=== PATIENT | female | born 1960 | race American Indian/Alaskan Native ===

== ENCOUNTER 2017-11-29 06:39 | Day surgery (SDC) | payer BC ==
[2017-10-31 11:45] VITALS: BMI 32.8
--- NOTE | 2017-11-29 04:34 | HP ---
DATE: REASON FOR ADMISSION: Left heart cath, possible angioplasty. BRIEF CLINICAL HISTORY: This is a 57-year-old female with past medical history significant for recurrent chest pain, retrosternal; status post stress test that is abnormal. The patient is scheduled for elective cardiac cath and possible angioplasty. PAST MEDICAL HISTORY: Past history is significant for recurrent chest pain, multiple visits to Dr. Hardin's office with the chest pain. Patient underwent a stress test dated 10/31/2017 and that was abnormal, so the patient is scheduled for elective cardiac cath, possible angioplasty. RECENT WORKUP: As follows: Patient had an echocardiography on 10/31/2017 that shows normal chamber size, ejection fraction 60% to 65%, mild mitral regurgitation, [id number] tricuspid regurgitation, RV systolic pressure of 32 dated 10/31/2017. Patient also underwent a stress test dated 10/31/2017 that showed probably abnormal myocardial perfusion study, reversible distal anterior apical defect suspicious for ischemia. When comparison made from 07/13/2015, the defect appeared reversible in a current study and is new as compared to before. Patient walked on the treadmill for 9 minutes and 25 seconds on Ranjan protocol and achieved 91% predicted heart rate. No significant chest pain. No ST-T changes noted. CURRENT MEDICATIONS: Patient is taking multivitamin, potassium gluconate and vitamin D. ALLERGIES: ALLERGY TO MUSHROOM. ALLERGY TO PEANUT. REVIEW OF SYSTEMS: As per HPI. PHYSICAL EXAMINATION: VITAL SIGNS: As follows: Temperature afebrile, heart rate 50, blood pressure 130/82. HEENT: PERRLA. Extraocular muscles intact. NECK: Supple. No carotid bruit or thyromegaly. CHEST: Clear to auscultation. HEART: S1 and S2, regular. ABDOMEN: Soft. EXTREMITIES: Clubbing and cyanosis negative. LABORATORY DATA: Blood workup, pending. IMPRESSION: Abnormal stress test, anteroseptal reversible ischemia, preserved left ventricular function, [id number] tricuspid regurgitation, mild mitral regurgitation, obesity and recurrent chest pain. RECOMMENDATION: We will do the cardiac catheterization. Risks, benefits and alternatives were explained to the patient, patient agreed. We will do the blood workup; if the blood workup is within normal limit, we will proceed for the cardiac catheterization. Further recommendation after cardiac catheterization. We will follow with you. Thank you for providing us the opportunity in taking care of the patient, Selina Elizabeth. Yefri Castro MD MICHAEL
[2017-11-29 07:25] LABS: BASO # 0.01 K/mm3 (0.0-2.0); BASO % 0.1 % (0.0-3.0); EOS # 0.1 (0.0-0.7); EOS % 1.4 % (1.5-5.0); GRAN # 3.3 (1.4-6.5); GRAN % 41.5 % (50.0-68.0); LYMPH # 3.9 (1.2-3.4); LYMPH % 49.2 % (22.0-35.0); MEAN CELL VOLUME 87.8 fl (80.0-105.0); MEAN CORPUSCULAR HEMOGLOBIN 28.8 pg (25.0-35.0); MEAN CORPUSCULAR HGB CONC 32.7 g/dl (31.0-37.0); MEAN PLATELET VOLUME 9.4 fl (7.0-11.0); MONO # 0.6 (0.1-0.6); MONO % 7.8 % (1.0-6.0); RBC 4.52 10^6/uL (3.5-6.1); RED CELL DISTRIBUTION WIDTH 14.4 % (11.5-14.5)
[2017-11-29 07:31] LABS: BLOOD UREA NITROGEN 18 mg/dL (7-21); CALCIUM 9.8 mg/dL (8.4-10.5); GFR AFRICAN-AMERICAN > 60; GFR NON-AFRICAN AMERICAN > 60; HDL CHOLESTEROL 64 mg/dL (29-60)
[2017-11-29 07:36] LABS: INR 0.93 (0.93-1.08); PARTIAL THROMBOPLASTIN TIME 28.8 Seconds (25.1-36.5); PROTHROMBIN TIME 10.7 SECONDS (9.4-12.5)
[2017-11-29 07:42] LABS: LDL CHOLESTEROL 102 mg/dL (0-129)
[2017-11-29] MEDS ORDERED: Phenylephrine 10 mg/ml Inj ONE (09:47)
[2017-11-29] MEDS ORDERED: Lidocaine 2% Inj (20ml) ONE (09:49)
[2017-11-29] MEDS ORDERED: Iohexol 350mgl/ml 50 ML ONE (09:50)
[2017-11-29] MEDS ORDERED: Iodixanol 320 MG/ML 200 ML BOTTLE IV ONE (09:51)
[2017-11-29] MEDS ORDERED: Iodixanol 320 MG/ML 100 ML BOTTLE IV ONE (09:51)
[2017-11-29] MEDS ORDERED: Midazolam 2 MG/2 ML VIAL ONE (09:52)
[2017-11-29] MEDS ORDERED: Nitroglycerin 50mg in D5W 50 MG/250 ML BOTTLE IV ONE (10:17)
[2017-11-29] MEDS ORDERED: Verapamil 2 ML ONE (10:17)
[2017-11-29] MEDS ORDERED: Bacitracin 500 Units/gm Oint Foilpak UD TOP ONE (10:59)
[2017-11-29] MEDS ORDERED: Sodium Chloride 0.9% 1,000 ML IV SCH (11:00)
[2017-11-29 11:19] VITALS: RESP 18; TEMP 98.1
--- NOTE | 2017-11-29 11:29 | CPOSTOP ---
DATE: 11/29/2017 DICTATING PHYSICIAN: Yefri Castro MD. WELDING SYSTEMS AND EQUIPMENT REPAIRER: Teena, social service technician, COAL LOADER. TYPE OF ANESTHESIA USED: Moderate conscious sedation. Total dose 2 mg of Versed, 100 of fentanyl given periodically, started at 1 mg Versed and 50 of fentanyl. PROCEDURE PERFORMED: Left heart catheterization. FINDINGS: Nonobstructive coronary artery disease. FINAL DIAGNOSIS: Nonobstructive coronary artery disease, limited only to distal circumflex. POST PROCEDURE CONDITION: Post procedure, the patient's condition is stable. VASCULAR ACCESS: Left radial. CLOSURE DEVICE APPLIED: TR Band. TOTAL RADIATION DOSE: 4798.8 milligray unit. TOTAL FLUORO TIME: 1.9 minutes. The patient is stable at the time of discharge. Yefri Castro MD
[2017-11-29 12:57] VITALS: O2SAT 96
[2017-11-29 13:18] VITALS: BP 124/59; PULSE 58
[2017-11-29] MEDS ORDERED: Bacitracin 500 Units/gm Oint Foilpak UD ONE (13:54)
--- NOTE | 2017-11-29 16:17 | CARD ---
APPROVED REPORT Procedure(s) performed: Left Heart Catheterization HISTORY The patient is a 57 year-old female with a history of : most recent EF: 69%. (EF Method: RADIONUCLIDE), hypertension , dyslipidemia , recurrent chest pain and abnormal stress test dana-septal Ischemia.. INDICATION The indication(s) include : positive stress test. CASE TECHNIQUE The patient was brought electively to the Cardiac Catheterization Laboratory in a fasting state and was prepped and draped in a sterile manner. The left wrist was infiltrated with 2% Lidocaine subcutaneous anesthesia. A 6FR [employer]+ [employer] sheath was inserted into the left radial artery without difficulty. Coronary angiography was performed using coronary diagnostic catheters. The left coronary system was accessed and visualized with a Diagnostic ,6F JL 4 CATH DXT 100 CM catheter. The right coronary system was accessed and visualized with a Diagnostic ,6F JR 4 CATH DXT 100 CM catheter. The left ventricle was accessed and visualized with a 6F PIGTAIL 145 CATH DXT 110 CM catheter. Left ventricular/Aortic Valve gradient assessed on pullback. Left ventriculogram was performed in CONCEPCION projection. Closure device was deployed with a Fr TR Band (Regular) without any complications. The patient tolerated the procedure well and there were no complications associated with the procedure. Vessel Analysis The patient's coronary anatomy is co-dominant. The left main coronary artery is a medium size vessel with diffuse calcification noted throughout this vessel and without significant stenosis. The left main bifurcates to the left anterior descending and circumflex. The left anterior descending artery is a medium size vessel with intimal irregularities. The first diagonal branch is a medium size vessel with diffuse calcification noted throughout this vessel and without significant stenosis. The circumflex artery is a medium size vessel with diffuse calcification noted throughout this vessel and without significant stenosis. The first obtuse marginal branch is a medium size vessel with intimal irregularities and without significant stenosis. The second obtuse marginal branch is a medium size vessel with intimal irregularities and without significant stenosis. The third obtuse marginal branch is a medium size vessel . There is a 55% stenosis in the distal segment. The right coronary artery is a medium size vessel with intimal irregularities and without significant stenosis. The right posterior descending artery is a medium size vessel with intimal irregularities and without significant stenosis. Left Ventricle The left ventricle is normal in size with normal contractility. There was no cardiomyopathy. The left ventricular ejection fraction is estimated to be 65%. The left ventricular end diastolic pressure is 12-14 mmHg. There was no gradient across the aortic valve upon pullback. Conclusion Non obstructive CAD limited to Distal OM3 is diffusely diseased 55-60%, non focal ,non flow limiting. Preserved LV Fx, EF-65%, EDP-12-14 mmof hg. Recommendations Cardiac Rehabilitation Referral Aggressive Medical TherapyCardiac Risk Reduction Program CC; Drs. Sellers/ Wilfred.
--- NOTE | 2017-11-29 22:36 | CARD ---
APPROVED REPORT EKG Measurement Heart [id number] <Conclusion> Sinus bradycardia Minimal voltage criteria for LVH, may be normal variant Borderline ECG
== END 2017-11-29 15:20 | disposition home or self-care (01) ==
LOC: CATH 06:39
PROVIDERS: ATTEND Internal Medicine Cardiovascular Disease
DX: I25.10 Atherosclerotic heart disease of native coronary artery without angina pectoris (principal); I10 Essential (primary) hypertension; E78.5 Hyperlipidemia, unspecified; I08.1 Rheumatic disorders of both mitral and tricuspid valves; R94.39 Abnormal result of other cardiovascular function study
CPT/HCPCS: 36415; 80048; 80061; 85025; 85610; 85730; 86850; 86900; 93005; 93458; 99152; C1769; J1644 ×2; J2250; J3010; J7040; Q9966

== ENCOUNTER 2018-01-22 08:53 | Inpatient (IN) | payer BC ==
[2017-10-31 11:45] VITALS: BMI 32.8
[2018-01-22] MEDS ORDERED: oxyCODONE 5 mg Immediate Release Tab PO PRN (10:46)
[2018-01-22] MEDS ORDERED: Tranexamic Acid 2 ML ONE (10:50)
[2018-01-22] MEDS ORDERED: Bupivacaine Liposomal Inj 20 ml ONE (10:52)
[2018-01-22] MEDS ORDERED: Midazolam 2 MG/2 ML VIAL ONE (11:30)
[2018-01-22] MEDS ORDERED: Propofol 10 mg/ml Inj (20 ML) ONE (11:30)
[2018-01-22] MEDS ORDERED: Lidocaine 2% Inj (20ml) ONE (11:31)
[2018-01-22] MEDS ORDERED: Morphine 1 mg/ml preservative-free Inj(Duramorph) ONE (11:32)
[2018-01-22] MEDS ORDERED: Rocuronium 10 mg/ml (5 ml) ONE (11:55)
[2018-01-22] MEDS ORDERED: Metoprolol 1 mg/ml Inj IVP ONE (12:18)
[2018-01-22] MEDS ORDERED: Desflurane Inhalation Anesthetic Liq (240 ml) ONE (12:40)
[2018-01-22] MEDS ORDERED: Lidocaine 1% Inj (20ml) ONE (13:20)
[2018-01-22] MEDS ORDERED: Bupivacaine 0.25% Inj(30mL) ONE (13:20)
[2018-01-22] MEDS ORDERED: Vancomycin 1 g Inj ONE (13:29)
[2018-01-22] MEDS ORDERED: Glycopyrrolate 0.2 mg/ml (2ml vial) ONE (14:45)
--- NOTE | 2018-01-22 15:23 | PCM.SURG1 ---
Surgeon's Initial Post Op Note - Surgeon's Notes Surgeon: Soheila Cardona MD Non Emergency Services Ambulance Driver: Cesar Schwarz PA-C Type of Anesthesia: General Endo Anesthesia Administered By: Pre-Operative Diagnosis: Left knee osteoarthritis Operative Findings: see full note Post-Operative Diagnosis: same Operation Performed: left total knee arthroplasty Specimen/Specimens Removed: none Estimated Blood Loss: EBL {In ML}: 200 Blood Products Given: N/A Drains Used: Hemovac, Wound Vac Post-Op Condition: Fair Date of Surgery/Procedure: 01/22/18 Time of Surgery/Procedure: 15:22
[2018-01-22] MEDS ORDERED: HYDROmorphone 1 mg/ml ISec IVP STA (15:25)
[2018-01-22] MEDS ORDERED: HYDROmorphone 0.5 mg/0.5 ml ISec IVP PRN (15:26)
[2018-01-22] MEDS ORDERED: HYDROmorphone 0.5 mg/0.5 ml ISec IVP ONE (15:26)
[2018-01-22] MEDS ORDERED: HYDROmorphone 0.5 mg/0.5 ml ISec ONE ×2 (15:27→15:44)
[2018-01-22] MEDS ORDERED: Lactated Ringer's 1,000 ML IV SCH (15:30)
[2018-01-22] MEDS ORDERED: HYDROmorphone 0.5 mg/0.5 ml ISec IVP STA (15:46)
--- NOTE | 2018-01-22 16:03 | RAD ---
PROCEDURE: Left Knee Radiographs. HISTORY: Pain. COMPARISON: None. FINDINGS: BONES: No acute fracture. Status post left knee arthroplasty. No evidence of prosthesis loosening. JOINTS: Normal. No osteoarthritis. JOINT EFFUSION: None. OTHER FINDINGS: Anterior cutaneous judah noted. IMPRESSION: Left knee arthroplasty.
[2018-01-22] MEDS: ceFAZolin 2 GM in Sodium Chloride 0.9% 100 ML IVPB SCH (21:13)
[2018-01-22] MEDS: HYDROmorphone 0.5 mg/0.5 ml ISec IVP PRN (22:18)
--- NOTE | 2018-01-23 02:38 | OP ---
PROCEDURE DATE: 01/22/2018 PREOPERATIVE DIAGNOSIS: Left knee arthritis. POSTOPERATIVE DIAGNOSIS: Left knee arthritis. PROCEDURE: Left total knee arthroplasty. SURGEON: Paulie Cardona MD PRINCIPLE SOFTWARE ENGINEER: Dr. Cardona is assisted by Kaylene Paul, the physician intellectual property legal assistant. Ms. Paul was scrubbed and present throughout the entire case and assisted in patient positioning, retraction and wound closure. TYPE OF ANESTHESIA: General. ESTIMATED BLOOD LOSS: 200 mL. COMPLICATIONS: None. IMPLANT: Biomet Vanguard total knee system. INDICATION FOR PROCEDURE: This is a 57-year-old female who presented with longstanding left knee pain. Clinical and radiographic examination was consistent with advanced degenerative joint disease. After a course of failed nonsurgical management including medications, injections, activity modification, recommendation is for a left knee arthroplasty. The risks, benefits and alternatives of the procedure were discussed with the patient and informed consent was obtained. DESCRIPTION OF PROCEDURE: After the surgical site was signed and verified in the preoperative holding area, the patient was taken to the operating room and placed supine on the operating room table. After administration of general anesthesia, the patient received 2 g of Ancef IV. A Man catheter was inserted. Tourniquet was placed above the left thigh. Care was taken to make sure all bony prominences and nerves were well padded and protected. Venodyne boots were placed on the nonoperative extremity and the left lower extremity was prepped and draped in the usual sterile fashion. The left lower extremity was exsanguinated and the tourniquet was inflated. Approximately 10 cm longitudinal midline incision was made. Soft tissues were dissected sharply down to the knee joint. Medial and parapatellar arthrotomy was performed. The ACL, PCL, anterior fat pad as well as menisci were resected. Once the knee joint was adequately exposed, a step drill was used to drill into the medullary canal of the distal femur. The intramedullary distal femoral guide was inserted and distal femoral resection was performed. Our femoral component was then sized and the 4-in-1 cut block was placed, and anterior and posterior cuts were performed. The block cut was performed on the distal femur and our attention directed to the tibia. Using the extramedullary tibial guide, proximal tibia with maintain proper alignment, a tibial resection was performed. Next, flexion and extension gaps were checked and the patient was noted to have full extension and flexion, and stable throughout. At this point, being careful to maintain proper rotation, medullary canal of the tibia was reamed and punched with the cruciate punch. With the trial tibia, trial femur, and a trial bearing in place, the knee was taken through range of motion and was noted to have full extension and flexion, and stable throughout. Attention was directed to the patella. The thickness of the patella was measured and patella resection was performed. Patellar button was sized and the holes for patellar button were then drilled. Trial patella was placed and the knee was taken through range of motion. Patella was noted to track normal without any evidence of lateral subluxation or tilt. At this point, all the trial components were removed and the knee joint was pulse lavaged with antibiotic saline solution. The bony surfaces were dried and the actual tibial, femoral, and patellar components were cemented into place. Care was taken to remove all cement debris. Once the cement had hardened, the wound was inspected for any debris and pulse lavaged. Actual bearing was then inserted and locked into place with a cross pin. The tourniquet was deflated and any obvious bleeding was cauterized. At this point, an On-Q intra-articular catheter was inserted canal and hooked up to a pain pump. A medium Hemovac drain was also inserted and arthrotomy was closed using #1 Vicryl suture. Subcutaneous tissue was closed using 0 Vicryl and 2-0 Vicryl sutures, and the skin was closed using judah. A FRANK incisional wound VAC was applied and a knee immobilizer was placed. Patient was awakened from the procedure and taken to the recovery room in stable condition. Paulie Cardona MD
[2018-01-23] MEDS: oxyCODONE 5 mg Immediate Release Tab PO PRN ×3 (03:19→16:24)
[2018-01-23] MEDS: HYDROmorphone 0.5 mg/0.5 ml ISec IVP PRN ×2 (04:19→11:22)
[2018-01-23] MEDS: ceFAZolin 2 GM in Sodium Chloride 0.9% 100 ML IVPB SCH (04:19)
[2018-01-23 06:57] LABS: GRAN # 7.9 (1.4-6.5); GRAN % 71.2 % (50.0-68.0); HEMOGLOBIN 11.4 g/dL (12.0-16.0); LYMPH # 2.4 (1.2-3.4); LYMPH % 21.6 % (22.0-35.0); MEAN CELL VOLUME 85.4 fl (80.0-105.0); MEAN CORPUSCULAR HEMOGLOBIN 28.2 pg (25.0-35.0); MEAN PLATELET VOLUME 9.4 fl (7.0-11.0); MONO # 0.8 (0.1-0.6); MONO % 7.2 % (1.0-6.0); RBC 4.04 10^6/uL (3.5-6.1); RED CELL DISTRIBUTION WIDTH 14.1 % (11.5-14.5); WHITE BLOOD COUNT 11.1 10^3/ul (4.5-11.0)
[2018-01-23 07:19] LABS: BLOOD UREA NITROGEN 9 mg/dL (7-21); CALCIUM 8.8 mg/dL (8.4-10.5); GFR AFRICAN-AMERICAN > 60; GFR NON-AFRICAN AMERICAN > 60
--- NOTE | 2018-01-23 08:50 | CP.PCM.PN ---
Subjective - Date & Time of Evaluation Date of Evaluation: 01/23/18 Time of Evaluation: 08:48 - Subjective Subjective: Pt awake, alert. Complaining of left knee pain. Donovan pierre. Afebrile, VSS L knee: dressing intact FRANK with good seal pain catheter in place NVI distally Hg 11.4 POD#1 Lovenox PT, CPM d/c planning Objective - Vital Signs/Intake and Output Vital Signs (last 24 hours): Temp Pulse Resp BP Pulse Ox 99.4 F 96 H 20 147/79 97 01/23/18 06:00 01/23/18 06:00 01/23/18 06:00 01/23/18 06:00 01/23/18 06:00 Intake and Output: 01/23/18 01/23/18 06:59 18:59 Intake Total 240 480 Output Total 550 1850 Balance -310 -1370 - Medications Medications: Current Medications Acetaminophen (Tylenol 325mg Tab) 650 mg PO Q6H [facility] Last Admin: 01/23/18 05:49 Dose: 650 mg Docusate Sodium (Colace) 100 mg PO BID [facility] Last Admin: 01/22/18 18:12 Dose: 100 mg Enoxaparin Sodium (Lovenox) 40 mg SC Q24H [facility] PRN Reason: Protocol Hydromorphone HCl (Dilaudid) 0.5 mg IVP Q6H PRN PRN Reason: Pain, severe (8-10) Last Admin: 01/23/18 04:19 Dose: 0.5 mg Multivitamins/Minerals (Therapeutic-M Tab) 1 tab PO DAILY [facility] Oxycodone HCl (Oxycodone Immediate Release Tab) 5 mg PO Q6H PRN PRN Reason: Pain, moderate (4-7) Last Admin: 01/23/18 03:19 Dose: 5 mg Pregabalin (Lyrica) 50 mg PO BID [facility] Last Admin: 01/22/18 21:13 Dose: 50 mg - Labs Labs: 01/23/18 06:30 01/23/18 06:30
[2018-01-23] MEDS: Multivitamin With Minerals Tab PO SCH (09:58)
[2018-01-23] MEDS: Enoxaparin 40 mg Syringe SC SCH (11:22)
[2018-01-24] MEDS: HYDROmorphone 0.5 mg/0.5 ml ISec IVP PRN ×2 (02:37→12:58)
[2018-01-24 06:47] LABS: BASO # 0.01 K/mm3 (0.0-2.0); BASO % 0.1 % (0.0-3.0); EOS % 0.1 % (1.5-5.0); GRAN # 8.33 (1.4-6.5); GRAN % 69.4 % (50.0-68.0); HEMOGLOBIN 10.8 g/dL (12.0-16.0); LYMPH # 2.5 (1.2-3.4); LYMPH % 21.1 % (22.0-35.0); MEAN CELL VOLUME 85.9 fl (80.0-105.0); MEAN CORPUSCULAR HEMOGLOBIN 28.7 pg (25.0-35.0); MEAN CORPUSCULAR HGB CONC 33.4 g/dl (31.0-37.0); MEAN PLATELET VOLUME 9.4 fl (7.0-11.0); MONO # 1.1 (0.1-0.6); MONO % 9.3 % (1.0-6.0); RBC 3.76 10^6/uL (3.5-6.1); RED CELL DISTRIBUTION WIDTH 14.3 % (11.5-14.5)
[2018-01-24 07:19] LABS: BLOOD UREA NITROGEN 11 mg/dL (7-21); CALCIUM 9.2 mg/dL (8.4-10.5); GFR AFRICAN-AMERICAN > 60; GFR NON-AFRICAN AMERICAN > 60
[2018-01-24 07:40] VITALS: BP 122/69; PULSE 91; RESP 20; O2SAT 99
--- NOTE | 2018-01-24 08:50 | CP.PCM.PN ---
Subjective - Date & Time of Evaluation Date of Evaluation: 01/24/18 Time of Evaluation: 08:48 - Subjective Subjective: Pt awake, alert. Feeling better. Pain controlled. Tmax 101 last night, 99 now Left knee: dressing changed drain and pain catheter d/c'd incision clean and dry, no drainage calf soft, NT NVI distally Hg 10.8 POD#2 cont PT, Lovenox d/c planning to acute rehab Objective - Vital Signs/Intake and Output Vital Signs (last 24 hours): Temp Pulse Resp BP Pulse Ox 99 F 91 H 20 122/69 99 01/24/18 06:00 01/24/18 06:00 01/24/18 06:00 01/24/18 06:00 01/24/18 06:00 Intake and Output: 01/24/18 01/24/18 06:59 18:59 Intake Total 720 Output Total 380 Balance 340 - Medications Medications: Current Medications Acetaminophen (Tylenol 325mg Tab) 650 mg PO Q6H [facility] Last Admin: 01/24/18 05:53 Dose: 650 mg Docusate Sodium (Colace) 100 mg PO BID [facility] Last Admin: 01/23/18 19:13 Dose: 100 mg Enoxaparin Sodium (Lovenox) 40 mg SC Q24H [facility] PRN Reason: Protocol Last Admin: 01/23/18 11:22 Dose: 40 mg Hydromorphone HCl (Dilaudid) 0.5 mg IVP Q6H PRN PRN Reason: Pain, severe (8-10) Last Admin: 01/24/18 02:37 Dose: 0.5 mg Multivitamins/Minerals (Therapeutic-M Tab) 1 tab PO DAILY [facility] Last Admin: 01/23/18 09:58 Dose: 1 tab Oxycodone HCl (Oxycodone Immediate Release Tab) 5 mg PO Q6H PRN PRN Reason: Pain, moderate (4-7) Last Admin: 01/23/18 16:24 Dose: 5 mg Pregabalin (Lyrica) 50 mg PO BID [facility] Last Admin: 01/23/18 19:14 Dose: 50 mg - Labs Labs: 01/24/18 06:15 01/24/18 06:15
[2018-01-24] MEDS: Multivitamin With Minerals Tab PO SCH (09:58)
[2018-01-24] MEDS: Enoxaparin 40 mg Syringe SC SCH (12:58)
[2018-01-24 15:16] VITALS: TEMP 99.4
== END 2018-01-24 19:48 | DRG 470 ==
LOC: SDAINP 08:53 → EDSTATUS 11:00 → 5RNO 17:05
PROVIDERS: ADMIT Orthopaedic Surgery; ATTEND Orthopaedic Surgery
PROC: 0SRD0J9 Replacement of Left Knee Joint with Synthetic Substitute, Cemented, Open Approach (ICD-10-PCS; principal; 2018-01-22 11:00)
DX: M17.12 Unilateral primary osteoarthritis, left knee (principal)

== ENCOUNTER 2018-01-24 19:55 | Inpatient (IN) | payer BC ==
[2017-10-31 11:45] VITALS: BMI 32.8
[2018-01-24] MEDS: HYDROmorphone 0.5 mg/0.5 ml ISec IVP PRN (21:45)
[2018-01-25] MEDS ORDERED: Pneumococcal 23-Valent Vaccine IM ONE (01:04)
[2018-01-25] MEDS: Enoxaparin 40 mg Syringe SC SCH (06:13)
[2018-01-25 06:49] VITALS: O2SAT 96
[2018-01-25 08:06] LABS: URINE BILIRUBIN NEGATIVE (NEGATIVE); URINE BLOOD MODERATE (NEGATIVE); URINE GLUCOSE (UA) NEGATIVE (NEGATIVE); URINE LEUKOCYTE ESTERASE NEGATIVE Leu/uL (NEGATIVE); URINE PROTEIN 100 mg/dL (<30 mg/dL); URINE UROBILINOGEN 0.2 E.U./dL (<1 E.U./dL)
[2018-01-25 08:26] LABS: URINE APPEARANCE CLEAR (CLEAR); URINE COLOR YELLOW (YELLOW)
[2018-01-25 08:51] LABS: URINE BACTERIA MANY (NEG); URINE RBC 15 - 20 /hpf (0-2)
[2018-01-25] MEDS: Multivitamin With Minerals Tab PO SCH (09:22)
[2018-01-25] MEDS: HYDROmorphone 0.5 mg/0.5 ml ISec IVP PRN ×2 (09:26→19:26)
--- NOTE | 2018-01-25 09:32 | RAD ---
HISTORY: Temperature COMPARISON: 12/26/2017 TECHNIQUE: Chest PA and lateral FINDINGS: LUNGS: No active pulmonary disease. PLEURA: No significant pleural effusion identified. No pneumothorax apparent. CARDIOVASCULAR: Normal. OSSEOUS STRUCTURES: Mild multilevel degenerative spondylosis of the thoracic spine tech VISUALIZED UPPER ABDOMEN: Normal. OTHER FINDINGS: None. IMPRESSION: No acute cardiopulmonary disease.
[2018-01-25] MEDS: oxyCODONE 5 mg Immediate Release Tab PO PRN (16:25)
[2018-01-25] MEDS ORDERED: POLYETHYLENE GLYCOL 3350 17 GM/Dose PACKET PO ONE (17:15)
--- NOTE | 2018-01-25 17:20 | CP.PCM.PN ---
Subjective - Date & Time of Evaluation Date of Evaluation: 01/25/18 Time of Evaluation: 17:20 - Subjective Subjective: Pt doing well. Adequate pain control. Pt has had low grade fever. Tmax 100.7, T (11am) 99.9 L knee: dressing changed incision clean and dry no drainage or cellulitis calf soft, NT NVI distally WBC (01/24) 12.0 CXR no acute disease UA blood, bacteria and yeast POD#3 Will check labs Stool softener cont PT, CPM Objective - Vital Signs/Intake and Output Vital Signs (last 24 hours): Temp Pulse Resp BP Pulse Ox 99.9 F H 96 H 20 116/60 96 01/25/18 11:14 01/25/18 11:14 01/25/18 11:14 01/25/18 11:14 01/25/18 11:14 - Medications Medications: Current Medications Acetaminophen (Tylenol 325mg Tab) 650 mg PO Q6H PRN; Protocol PRN Reason: temp Last Admin: 01/24/18 21:51 Dose: 650 mg Cholecalciferol (Vitamin D) 2,000 intlu PO DAILY [facility] Docusate Sodium (Colace) 100 mg PO BID [facility] PRN Reason: Protocol Last Admin: 01/25/18 09:22 Dose: 100 mg Enoxaparin Sodium (Lovenox) 40 mg SC 0600 [facility] PRN Reason: Protocol Last Admin: 01/25/18 06:13 Dose: 40 mg Hydromorphone HCl (Dilaudid) 0.5 mg IVP Q6H PRN; Protocol PRN Reason: severe pain Last Admin: 01/25/18 09:26 Dose: 0.5 mg Multivitamins/Minerals (Therapeutic-M Tab) 1 tab PO 0800 [facility] PRN Reason: Protocol Last Admin: 01/25/18 09:22 Dose: 1 tab Oxycodone HCl (Oxycodone Immediate Release Tab) 5 mg PO Q6H PRN; Protocol PRN Reason: moderate pain Last Admin: 01/25/18 16:25 Dose: 5 mg Polyethylene Glycol (Miralax) 17 gm PO ONCE ONE Stop: 01/25/18 17:16 Pregabalin (Lyrica) 50 mg PO BID [facility] PRN Reason: Protocol Last Admin: 01/25/18 09:25 Dose: 50 mg
[2018-01-25] MEDS: Cholecalciferol 1,000 INTLU TAB PO SCH (18:36)
[2018-01-25 20:26] LABS: BASO # 0.01 K/mm3 (0.0-2.0); BASO % 0.1 % (0.0-3.0); EOS # 0.1 (0.0-0.7); EOS % 0.5 % (1.5-5.0); GRAN # 8.44 (1.4-6.5); GRAN % 60.4 % (50.0-68.0); LYMPH # 4.3 (1.2-3.4); LYMPH % 30.8 % (22.0-35.0); MEAN CELL VOLUME 86.4 fl (80.0-105.0); MEAN CORPUSCULAR HEMOGLOBIN 28.4 pg (25.0-35.0); MEAN CORPUSCULAR HGB CONC 32.9 g/dl (31.0-37.0); MEAN PLATELET VOLUME 9.7 fl (7.0-11.0); MONO # 1.2 (0.1-0.6); MONO % 8.2 % (1.0-6.0); RBC 3.52 10^6/uL (3.5-6.1); RED CELL DISTRIBUTION WIDTH 14.2 % (11.5-14.5)
[2018-01-26] MEDS: Enoxaparin 40 mg Syringe SC SCH (05:39)
[2018-01-26] MEDS: oxyCODONE 5 mg Immediate Release Tab PO PRN ×3 (05:45→23:36)
[2018-01-26 07:11] LABS: BLOOD UREA NITROGEN 12 mg/dL (7-21); CALCIUM 8.8 mg/dL (8.4-10.5); GFR AFRICAN-AMERICAN > 60; GFR NON-AFRICAN AMERICAN > 60
[2018-01-26 08:03] LABS: BASO # 0.01 K/mm3 (0.0-2.0); BASO % 0.1 % (0.0-3.0); EOS # 0.2 (0.0-0.7); EOS % 1.3 % (1.5-5.0); GRAN # 7.03 (1.4-6.5); GRAN % 61.9 % (50.0-68.0); HEMOGLOBIN 9.5 g/dL (12.0-16.0); LYMPH # 3.2 (1.2-3.4); LYMPH % 27.9 % (22.0-35.0); MEAN CELL VOLUME 86.1 fl (80.0-105.0); MEAN CORPUSCULAR HEMOGLOBIN 28.2 pg (25.0-35.0); MEAN CORPUSCULAR HGB CONC 32.8 g/dl (31.0-37.0); MEAN PLATELET VOLUME 9.9 fl (7.0-11.0); MONO % 8.8 % (1.0-6.0); RBC 3.37 10^6/uL (3.5-6.1); RED CELL DISTRIBUTION WIDTH 13.9 % (11.5-14.5); WHITE BLOOD COUNT 11.4 10^3/ul (4.5-11.0)
[2018-01-26] MEDS: Cholecalciferol 1,000 INTLU TAB PO SCH (09:47)
[2018-01-26] MEDS: Multivitamin With Minerals Tab PO SCH (09:47)
--- NOTE | 2018-01-26 09:50 | CP.PCM.PN ---
Subjective - Date & Time of Evaluation Date of Evaluation: 01/26/18 Time of Evaluation: 09:49 - Subjective Subjective: Pt states she feels ok. Adequate pain control. Tmax 100.9 T now 99.9 L knee dressing clean and dry NVI distally CPM WBC 11.4 Urine culture not resulted cont current care check urine culture Objective - Vital Signs/Intake and Output Vital Signs (last 24 hours): Temp Pulse Resp BP Pulse Ox 98.7 F 96 H 20 116/60 96 01/25/18 22:15 01/25/18 11:14 01/25/18 11:14 01/25/18 11:14 01/25/18 11:14 Intake and Output: 01/26/18 01/26/18 06:59 18:59 Intake Total 300 Balance 300 - Medications Medications: Current Medications Acetaminophen (Tylenol 325mg Tab) 650 mg PO Q6H PRN; Protocol PRN Reason: temp Last Admin: 01/25/18 18:54 Dose: 650 mg Cholecalciferol (Vitamin D) 2,000 intlu PO DAILY [facility] Last Admin: 01/25/18 18:36 Dose: 2,000 intlu Docusate Sodium (Colace) 100 mg PO BID [facility] PRN Reason: Protocol Last Admin: 01/25/18 18:36 Dose: 100 mg Enoxaparin Sodium (Lovenox) 40 mg SC 0600 [facility] PRN Reason: Protocol Last Admin: 01/26/18 05:39 Dose: 40 mg Hydromorphone HCl (Dilaudid) 0.5 mg IVP Q6H PRN; Protocol PRN Reason: severe pain Last Admin: 01/25/18 19:26 Dose: 0.5 mg Multivitamins/Minerals (Therapeutic-M Tab) 1 tab PO 0800 [facility] PRN Reason: Protocol Last Admin: 01/25/18 09:22 Dose: 1 tab Oxycodone HCl (Oxycodone Immediate Release Tab) 5 mg PO Q6H PRN; Protocol PRN Reason: moderate pain Last Admin: 01/26/18 05:45 Dose: 5 mg Pregabalin (Lyrica) 50 mg PO BID [facility] PRN Reason: Protocol Last Admin: 01/25/18 18:36 Dose: 50 mg - Labs Labs: 01/26/18 06:30 01/26/18 06:30
[2018-01-26] MEDS: HYDROmorphone 0.5 mg/0.5 ml ISec IVP PRN ×2 (13:46→21:17)
[2018-01-26 23:52] VITALS: BP 100/54; PULSE 77; RESP 18; TEMP 98.2
== END 2018-01-27 04:17 | disposition short-term general hospital (02) | DRG 561 ==
LOC: TRCU 19:55
PROVIDERS: ADMIT Orthopaedic Surgery; ATTEND Orthopaedic Surgery
PROC: F07Z9FZ Gait Training/Functional Ambulation Treatment using Assistive, Adaptive, Supportive or Protective Equipment (ICD-10-PCS; principal; 2018-01-26)
PROC: F07Z8FZ Transfer Training Treatment using Assistive, Adaptive, Supportive or Protective Equipment (ICD-10-PCS; 2018-01-26)
PROC: F07Z5ZZ Bed Mobility Treatment (ICD-10-PCS; 2018-01-26)
PROC: F07L6YZ Therapeutic Exercise Treatment of Musculoskeletal System - Lower Back / Lower Extremity using Other Equipment (ICD-10-PCS; 2018-01-26)
DX: Z47.1 Aftercare following joint replacement surgery (principal); Z96.652 Presence of left artificial knee joint; R50.9 Fever, unspecified

== ENCOUNTER 2018-01-27 00:28 | Inpatient (IN) | payer BC ==
[2018-01-27 00:29] VITALS: BMI 32.8
[2018-01-27 02:15] LABS: HEMOGLOBIN 9.2 g/dL (12.0-16.0); MEAN CELL VOLUME 85.6 fl (80.0-105.0); MEAN CORPUSCULAR HEMOGLOBIN 28.2 pg (25.0-35.0); MEAN PLATELET VOLUME 9.3 fl (7.0-11.0); RBC 3.26 10^6/uL (3.5-6.1); RED CELL DISTRIBUTION WIDTH 13.7 % (11.5-14.5); WHITE BLOOD COUNT 12.2 10^3/ul (4.5-11.0)
[2018-01-27 02:17] LABS: ALB/GLOB RATIO 1.1 (1.1-1.8); ALBUMIN 3.5 g/dL (3.0-4.8); ALT/SGPT 42 U/L (7-56); AST/SGOT 53 U/L (14-36); BLOOD UREA NITROGEN 13 mg/dL (7-21); CALCIUM 8.8 mg/dL (8.4-10.5); GFR AFRICAN-AMERICAN > 60; GFR NON-AFRICAN AMERICAN > 60
[2018-01-27 02:32] LABS: INR 1.13 (0.93-1.08); PARTIAL THROMBOPLASTIN TIME 26.9 Seconds (25.1-36.5); PROTHROMBIN TIME 12.9 SECONDS (9.4-12.5)
[2018-01-27] MEDS ORDERED: Potassium Chloride 20 mEq ER Tab PO STA (03:09)
--- NOTE | 2018-01-27 04:03 | CP.PCM.HP ---
<Angelica Baker - Last Filed: 01/27/18 06:15> History of Present Illness - History of Present Illness History of Present Illness: History and Physical - Hospitalist Service CC: My leg is swollen and it hurts HPI: Patient is a 57 year old female with past medical history of non- obstructive CAD, osteoarthritis was sent from TCU to the ER for lower extremity swelling and calf pain. Patient recently underwent left total knee arthroplasty with Dr Cardona on Sunday. She was admitted to the rehab unit post op and developed left calf pain and swelling after a few days. She was sent to the ER to have Lower extremity Dopplers done which was positive for DVT. She reports that she has not had a bowel movement since Sunday before the surgery. Patient offers no other complaints at this time. Denies headaches, dizziness, cp, palpitations, sob, abdominal pain, urinary symptoms. ED Course: Lovenox 80mg SC x 1 Allergies: Mushroom Medications: Denies Medical History: Non-obstructive CAD, osteoarthritis Surgical History: Right Knee replacement, Hysterectomy, Fibroid removal Social History: Denies alcohol, tobacco, drug use Family History: Patient states her mom and sister have history of DVT/PE Present on Admission - Present on Admission Any Indicators Present on Admission: No History of DVT/PE: No Past Patient History - Infectious Disease Hx of Infectious Diseases: None - Tetanus Immunizations Tetanus Immunization: Unknown - Past Medical History & Family History Past Medical History?: Yes - Past Social History Smoking Status: Never Smoked - CARDIAC Hx Hypertension: Yes - PULMONARY Hx Respiratory Disorders: Yes Hx Asthma: Yes (Seasonal) Hx Sleep Apnea: Yes - NEUROLOGICAL Hx Dizziness: Yes - HEENT Hx HEENT Problems: No - RENAL Hx Chronic Kidney Disease: No - ENDOCRINE/METABOLIC Hx Endocrine Disorders: No - HEMATOLOGICAL/ONCOLOGICAL Hx Blood Disorders: No - INTEGUMENTARY Hx Dermatological Problems: No - MUSCULOSKELETAL/RHEUMATOLOGICAL Hx Arthritis: Yes - GASTROINTESTINAL Hx Gastrointestinal Disorders: Yes (gerd) - GENITOURINARY/GYNECOLOGICAL Hx Genitourinary Disorders: No Hx Reproductive Disorders: No - PSYCHIATRIC Hx Emotional Abuse: No Hx Physical Abuse: No Hx Substance Use: No - SURGICAL HISTORY Hx Surgeries: Yes - ANESTHESIA Hx Anesthesia Reactions: No Hx Malignant Hyperthermia: No Meds Allergies/Adverse Reactions: Allergies Allergy/AdvReac Type Severity Reaction Status Date / Time mushroom Allergy Severe SWELLING Verified 01/24/18 19:59 Physical Exam - Constitutional Appears: Well, No Acute Distress - Head Exam Head Exam: ATRAUMATIC, NORMAL INSPECTION, NORMOCEPHALIC - Eye Exam Eye Exam: EOMI, Normal appearance Pupil Exam: NORMAL ACCOMODATION - ENT Exam ENT Exam: Mucous Membranes Moist - Respiratory Exam Respiratory Exam: Clear to Auscultation Bilateral, NORMAL BREATHING PATTERN. absent: Rales, Rhonchi, Wheezes - Cardiovascular Exam Cardiovascular Exam: REGULAR RHYTHM, +S1, +S2 - GI/Abdominal Exam GI & Abdominal Exam: Normal Bowel Sounds, Soft. absent: Guarding, Rebound, Rigid, Tenderness - Extremities Exam Additional comments: Left lower extremity: +edematous, incision clean/dry/intact with judah, + pedal pulses Right lower extremity: No calf tenderness, +pedal pulses - Back Exam Back exam: NORMAL INSPECTION - Neurological Exam Neurological exam: Alert, Oriented x3 - Psychiatric Exam Psychiatric exam: Normal Affect, Normal Mood - Skin Skin Exam: Dry, Normal Color, Warm Results - Vital Signs Recent Vital Signs: Last Vital Signs Temp 99.1 F 01/27/18 00:31 Pulse 81 01/27/18 00:31 Resp 18 01/27/18 00:31 BP 120/62 01/27/18 00:31 Pulse Ox 98 01/27/18 00:31 - Labs Result Diagrams: 01/27/18 01:53 01/27/18 01:53 Labs: Laboratory Results - last 24 hr 01/27/18 01/27/18 01/27/18 01:53 01:53 01:53 WBC 12.2 H RBC 3.26 L Hgb 9.2 L Hct 27.9 L MCV 85.6 MCH 28.2 MCHC 33.0 RDW 13.7 Plt Count 317 MPV 9.3 PT 12.9 H INR 1.13 H APTT 26.9 Sodium 138 Potassium 3.4 L Chloride 97 L Carbon Dioxide 29 Anion Gap 15 BUN 13 Creatinine 0.6 L Est GFR ( Amer) > 60 Est GFR (Non-Af Amer) > 60 Random Glucose 116 H Calcium 8.8 Total Bilirubin 0.6 AST 53 H ALT 42 Alkaline Phosphatase 106 Total Protein 6.7 Albumin 3.5 Globulin 3.1 Albumin/Globulin Ratio 1.1 Assessment & Plan - Assessment and Plan (Free Text) Assessment: A/P: Patient is a 57 year old female with no significant past medical history presents to the ED for left lower extremity swelling and discomfort Left Lower Extremity DVT -Admit to Med/Surg -Stable, afebrile -Dopplers: positive DVT at posterior tibial vein of left leg (official read pending) -Will start Lovenox 80mg SC Q12H -Dr Cardona on consult help appreciated S/P Left Knee Arthroplasty -Pain control: Dilaudid 0.5mg Q6H prn, Oxycodone 5mg Q6H prn -Continue routine post-op care Constipation -Likely due to narcotic use -Colace 100mg PO BID -Miralax 17gm PO daily -Monitor for return of bowel function Leukocytosis -WBC 12.2 on admission, afebrile -CXR completed, official report pending -Could be reactive due to recent surgery -Continue to monitor Hypokalemia -Potassium 3.4 on admission -Repleted, will continue to monitor History of Vitamin D Deficiency -F/U Vitamin D level GI/DVT ppx: -Protonix 40mg PO daily -Lovenox 80mg SC Q12H Plan discussed with Dr Enid Baker DO PGY-1 <Enid Ledbetter N - Last Filed: 01/27/18 06:59> Results - Vital Signs Recent Vital Signs: Last Vital Signs Temp 99.1 F 01/27/18 00:31 Pulse 84 01/27/18 05:09 Resp 16 01/27/18 06:12 BP 126/68 01/27/18 05:09 Pulse Ox 100 01/27/18 05:09 - Labs Result Diagrams: 01/27/18 01:53 01/27/18 01:53
[2018-01-27] MEDS ORDERED: oxyCODONE 5 mg Immediate Release Tab PO PRN (04:07)
[2018-01-27] MEDS ORDERED: Enoxaparin 80 mg Syringe SC STA (04:09)
--- NOTE | 2018-01-27 04:19 | ED PDOC ---
Arrival/HPI - General Chief Complaint: Lower Extremity Problem/Injury Time Seen by Provider: 01/27/18 01:13 Historian: Patient - History of Present Illness Narrative History of Present Illness (Text): 01/27/18 01:31 57 year old female, with no significant past medical history, presents to the Emergency department from TCU for lower extremity swelling and calf pain for past few days. Patient recently underwent left total knee athroscopy under Dr. Cardona's service on Sunday as noted on TCU and developed left calf discomfort after few days. Due to patient's clinical presentation, Dr. Cardona ordered transfer of patient to [facility] department for possible DVT. Upon arrival, patient expresses discomfort to left calf but denies any knee pain or trauma. Patient denies any fever, chills, nausea, vomiting, diarrhea, abdominal pain, chest pain, shortness of breath or any other complaints. Time/Duration: < week Symptom Course: Unchanged Activities at Onset: Light Context: Other (TCU) Past Medical History - Provider Review Nursing Documentation Reviewed: Yes - Past History Past History: No Previous - Infectious Disease Hx of Infectious Diseases: None - Tetanus Immunization Tetanus Immunization: Unknown - Past Medical History Past Medical History: No Previous - Cardiac Hx Hypertension: Yes - Pulmonary Hx Respiratory Disorders: Yes Hx Asthma: Yes (Seasonal) Hx Sleep Apnea: Yes - Neurological Hx Dizziness: Yes - HEENT Hx HEENT Disorder: No - Renal Hx Renal Disorder: No - Endocrine/Metabolic Hx Endocrine Disorders: No - Hematological/Oncological Hx Blood Disorders: No - Integumentary Hx Dermatological Disorder: No - Musculoskeletal/Rheumatological Hx Arthritis: Yes - Gastrointestinal Hx Gastrointestinal Disorders: Yes (gerd) - Genitourinary/Gynecological Hx Genitourinary Disorders: No Hx Reproductive Disorders: No - Psychiatric Hx Emotional Abuse: No Hx Physical Abuse: No Hx Substance Use: No - Surgical History Hx Cardiac Catheterization: Yes (11/29/17-WNL) Hx Section: Yes (x1) Hx Hysterectomy: Yes (1997) - Anesthesia Hx Anesthesia Reactions: No Hx Malignant Hyperthermia: No - Suicidal Assessment Feels Threatened In Home Enviroment: No Family/Social History - Physician Review Nursing Documentation Reviewed: Yes Family/Social History: No Known Family HX Smoking Status: Never Smoked Hx Alcohol Use: No Hx Substance Use: No Hx Substance Use Treatment: No Allergies/Home Meds Allergies/Adverse Reactions: Allergies mushroom Allergy (Severe, Verified 06/28/18 19:59) SWELLING SWELLING OF LIPS AND THROAT Home Medications: Home Meds Medication Instructions Recorded Confirmed Cholecalciferol [Vitamin D 1000 IU] 1 tab PO DAILY 11/20/17 01/27/18 Multivit-Min/Iron/Folic/Lutein 1 tab PO DAILY 11/20/17 01/27/18 [Centrum Silver Women Tablet] Potassium Gluconate [Potassium] 1 tab PO DAILY 11/20/17 01/27/18 Review of Systems - Physician Review All systems were reviewed & negative as marked: Yes - Review of Systems Constitutional: Normal. absent: Fevers Eyes: Normal ENT: Normal Respiratory: Normal. absent: SOB Cardiovascular: Calf Pain (left calf pain). absent: Chest Pain Gastrointestinal: Normal. absent: Abdominal Pain, Diarrhea, Nausea, Vomiting Genitourinary Female: Normal Musculoskeletal: Normal Skin: Normal Neurological: Normal Endocrine: Normal Hemo/Lymphatic: Normal Psychiatric: Normal Physical Exam Vital Signs Reviewed: Yes Vital Signs Temp Pulse Resp BP Pulse Ox 01/27/18 05:07 84 18 126/68 100 01/27/18 00:31 99.1 F 81 18 120/62 98 Temperature: Afebrile Blood Pressure: Normal Pulse: Regular Respiratory Rate: Normal Appearance: Positive for: Well-Appearing, Non-Toxic, Comfortable Pain Distress: None Mental Status: Positive for: Alert and Oriented X 3 - Systems Exam Head: Present: Atraumatic, Normocephalic Pupils: Present: PERRL Extroacular Muscles: Present: EOMI Conjunctiva: Present: Normal Mouth: Present: Moist Mucous Membranes Neck: Present: Normal Range of Motion Respiratory/Chest: Present: Clear to Auscultation, Good Air Exchange. No: Respiratory Distress, Accessory Muscle Use Cardiovascular: Present: Regular Rate and Rhythm, Normal S1, S2. No: Murmurs Abdomen: No: Tenderness, Distention, Peritoneal Signs Back: Present: Normal Inspection Upper Extremity: Present: Normal Inspection. No: Cyanosis, Edema Lower Extremity: Present: CALF TENDERNESS (Tenderness to the left posterior upper calf leg area with some minimal swelling. ), Neurovascularly Intact. No: Edema, Erythema (No erythema or discharge noted at surgical wound site.) Neurological: Present: GCS=15, CN II-XII Intact, Speech Normal Skin: Present: Warm, Dry, Normal Color. No: Rashes Psychiatric: Present: Alert, Oriented x 3, Normal Insight, Normal Concentration Medical Decision Making ED Course and Treatment: 01/27/18 01:30 Impression: 57 year old female presents to the Emergency department for left calf pain. Differential Diagnosis included but are not limited to: DVT Plan: -- EKG -- Labs -- Chest X-ray -- Lovenox -- Reassess and disposition Prior Visits: Notes and results from previous visits were reviewed. Progress Notes: 01/27/18 01:40 Patient had doppler study performed, showed positive DVT at posterior tibial vein of left leg. 01/27/18 03:[address] Cardona, who is aware and agrees with plan, requests patient to be given Lovenox as an anticoaggulant and admit patient to the hospitalist's service. 01/27/18 04:00 Case discussed with medical hospital sales and Dr. Ledbetter, who are aware and agrees with plan, accepts patient under the hospitalist's service for further treatment and observation. - Lab Interpretations Lab Results: 01/27/18 01:53 01/27/18 01:53 Lab Results 01/27/18 01:53: Sodium 138, Potassium 3.4 L, Chloride 97 L, Carbon Dioxide 29, Anion Gap 15, BUN 13, Creatinine 0.6 L, Est GFR ( Amer) > 60, Est GFR ( Non-Af Amer) > 60, Random Glucose 116 H, Calcium 8.8, Total Bilirubin 0.6, AST 53 H, ALT 42, Alkaline Phosphatase 106, Total Protein 6.7, Albumin 3.5, Globulin 3.1, Albumin/Globulin Ratio 1.1 01/27/18 01:53: WBC 12.2 H, RBC 3.26 L, Hgb 9.2 L, Hct 27.9 L, MCV 85.6, MCH 28.2, MCHC 33.0, RDW 13.7, Plt Count 317, MPV 9.3 01/27/18 01:53: PT 12.9 H, INR 1.13 H, APTT 26.9 - RAD Interpretation Radiology Orders: 01/27/18 00:54 DUPLEX LOWER EXTRM VEIN BILAT [US] Stat 01/27/18 01:32 CHEST PORTABLE [RAD] Stat - Medication Orders Current Medication Orders: Docusate Sodium (Colace) 100 mg PO BID RAE Last Admin: 01/27/18 17:18 Dose: 100 mg Enoxaparin Sodium (Lovenox) 90 mg SC Q12H RAE PRN Reason: Protocol Last Admin: 01/27/18 17:19 Dose: 90 mg Subcutaneous Administrations Document 01/27/18 17:19 JENNIFER (Rec: 01/27/18 17:19 [id number]) Injection Site MAR Injection Site Right Abdomen Charges for Administration # of Subcutaneous Administrations 1 Hydromorphone HCl (Dilaudid) 0.5 mg IVP Q6H PRN PRN Reason: Pain, severe (8-10) Last Admin: 01/27/18 12:06 Dose: 0.5 mg MAR Pain Assessment Document 01/27/18 12:06 JENNIFER (Rec: 01/27/18 12:06 [id number]) Pain Reassessment Is this a pain reassessment? Yes Sleep Is patient sleeping during reassessment? No Presence of Pain Presence of Pain Yes Pain Scale Used Pain Scale Used Numeric Location Left, Right or Bilateral Left Upper or Lower Lower Pain Location Body Site Knee Description Description Intermittent Intensity of Pain at present 8 Pain Behavior Withdrawal from Touch Grasping Site Aggravating Factors Changing Position Alleviating Factors/Management Medication Techniques Alleviating Factors Medication IVP Administration Document 01/27/18 12:06 JENNIFER (Rec: 01/27/18 12:06 [id number]) Charges for Administration # of IVP Administrations 1 Re-Assess: MAR Pain Assessment Document 01/27/18 13:06 JENNIFER (Rec: 01/27/18 17:00 [id number]) Pain Reassessment Is this a pain reassessment? Yes Sleep Is patient sleeping during reassessment? Yes Oxycodone HCl (Oxycodone Immediate Release Tab) 10 mg PO Q6H PRN PRN Reason: Pain, moderate (4-7) Last Admin: 01/27/18 17:19 Dose: 10 mg MAR Pain Assessment Document 01/27/18 17:19 JENNIFER (Rec: 01/27/18 17:20 [id number]) Pain Reassessment Is this a pain reassessment? Yes Sleep Is patient sleeping during reassessment? No Presence of Pain Presence of Pain Yes Pain Scale Used Pain Scale Used Numeric Location Left, Right or Bilateral Right Upper or Lower Lower Pain Location Body Site Knee Description Description Intermittent Intensity of Pain at present 7 Pain Behavior Withdrawal from Touch Aggravating Factors Changing Position Alleviating Factors/Management Medication Techniques Alleviating Factors Medication Pantoprazole Sodium (Protonix Ec Tab) 40 mg PO 0600 [facility] Last Admin: 01/27/18 06:16 Dose: 40 mg Polyethylene Glycol (Miralax) 17 gm PO DAILY RAE Last Admin: 01/27/18 10:33 Dose: 17 gm Pregabalin (Lyrica) 50 mg PO BID [facility] Last Admin: 01/27/18 17:19 Dose: 50 mg Discontinued Medications Enoxaparin Sodium (Lovenox) 80 mg SC STAT STA PRN Reason: Protocol Stop: 01/27/18 04:10 Last Admin: 01/27/18 04:59 Dose: 80 mg Subcutaneous Administrations Document 01/27/18 04:59 JAVY (Rec: 01/27/18 04:59 JAVY [id number]) Injection Site MAR Injection Site Right Abdomen Charges for Administration # of Subcutaneous Administrations 1 Enoxaparin Sodium (Lovenox) 80 mg SC Q12H RAE PRN Reason: Protocol Potassium Chloride (K-Dur 20 Meq Er Tab) 20 meq PO STAT STA Stop: 01/27/18 03:10 Last Admin: 01/27/18 04:59 Dose: 20 meq - Scribe Statement The provider has reviewed the documentation as recorded by the Shaanibkelly Smith. All medical record entries made by the Shaanibe were at my direction and personally dictated by me. I have reviewed the chart and agree that the record accurately reflects my personal performance of the history, physical exam, medical decision making, and the department course for this patient. I have also personally directed, reviewed, and agree with the discharge instructions and disposition. Disposition/Present on Arrival - Present on Arrival Any Indicators Present on Arrival: No History of DVT/PE: No History of Uncontrolled Diabetes: No Urinary Catheter: No History of Decub. Ulcer: No History Surgical Site Infection Following: None - Disposition Have Diagnosis and Disposition been Completed?: Yes Diagnosis: Left leg DVT Disposition: HOSPITALIZED Disposition Time: 04:00 Condition: STABLE
[2018-01-27] MEDS: Pantoprazole 40 mg EC Tab PO SCH (06:16)
[2018-01-27] MEDS: HYDROmorphone 0.5 mg/0.5 ml ISec IVP PRN ×2 (06:23→12:06)
[2018-01-27] MEDS ORDERED: cefTRIAXone 2 GM IN NS 2 GM/100 ML BAG IVPB STA (06:57)
[2018-01-27 10:28] LABS: URINE BILIRUBIN NEGATIVE (NEGATIVE); URINE BLOOD SMALL (NEGATIVE); URINE GLUCOSE (UA) NEGATIVE (NEGATIVE); URINE LEUKOCYTE ESTERASE NEGATIVE Leu/uL (NEGATIVE); URINE PROTEIN 30 mg/dL (<30 mg/dL); URINE UROBILINOGEN 0.2 E.U./dL (<1 E.U./dL)
--- NOTE | 2018-01-27 10:31 | RAD ---
HISTORY: Left calf pain, history of DVT. COMPARISON: 01/24/2018 FINDINGS: LUNGS: No active pulmonary disease. PLEURA: No significant pleural effusion identified, no pneumothorax apparent. CARDIOVASCULAR: No radiographic findings to suggest acute or significant cardiovascular disease. OSSEOUS STRUCTURES: No significant abnormalities. VISUALIZED UPPER ABDOMEN: Normal. OTHER FINDINGS: None. IMPRESSION: No active disease. No significant interval change compared to the prior examination(s).
[2018-01-27] MEDS: oxyCODONE 5 mg Immediate Release Tab PO PRN ×2 (10:33→17:19)
[2018-01-27] MEDS: POLYETHYLENE GLYCOL 3350 17 GM/Dose PACKET PO SCH (10:33)
[2018-01-27 10:34] LABS: URINE COLOR YELLOW (YELLOW)
[2018-01-27 10:35] LABS: URINE APPEARANCE CLEAR (CLEAR)
[2018-01-27 10:38] LABS: URINE BACTERIA MANY (NEG); URINE WBC 0 - 2 /hpf (0-6)
--- NOTE | 2018-01-27 16:59 | CARD ---
APPROVED REPORT EKG Measurement Heart [id number] <Conclusion> Normal sinus rhythm Normal ECG
[2018-01-27] MEDS ORDERED: Enoxaparin 80 mg Syringe SC SCH (17:00)
[2018-01-27] MEDS: Enoxaparin 100 mg Syringe SC SCH (17:19)
[2018-01-28] MEDS: HYDROmorphone 0.5 mg/0.5 ml ISec IVP PRN
[2018-01-28] MEDS: Enoxaparin 100 mg Syringe SC SCH (05:42)
[2018-01-28] MEDS: Pantoprazole 40 mg EC Tab PO SCH (05:43)
[2018-01-28] MEDS: oxyCODONE 5 mg Immediate Release Tab PO PRN ×2 (05:49→20:27)
[2018-01-28 07:16] LABS: ALBUMIN 3.4 g/dL (3.0-4.8); ALT/SGPT 64 U/L (7-56); AST/SGOT 62 U/L (14-36); BLOOD UREA NITROGEN 13 mg/dL (7-21); CALCIUM 8.8 mg/dL (8.4-10.5); GFR AFRICAN-AMERICAN > 60; GFR NON-AFRICAN AMERICAN > 60
[2018-01-28 07:32] LABS: BASO # 0.02 K/mm3 (0.0-2.0); BASO % 0.2 % (0.0-3.0); EOS # 0.3 (0.0-0.7); EOS % 2.6 % (1.5-5.0); GRAN # 5.23 (1.4-6.5); GRAN % 51.7 % (50.0-68.0); HEMOGLOBIN 8.7 g/dL (12.0-16.0); LYMPH # 3.6 (1.2-3.4); MEAN CELL VOLUME 88.6 fl (80.0-105.0); MEAN CORPUSCULAR HEMOGLOBIN 28.3 pg (25.0-35.0); MEAN PLATELET VOLUME 10.1 fl (7.0-11.0); MONO % 9.5 % (1.0-6.0); RBC 3.07 10^6/uL (3.5-6.1); RED CELL DISTRIBUTION WIDTH 13.8 % (11.5-14.5); WHITE BLOOD COUNT 10.1 10^3/ul (4.5-11.0)
--- NOTE | 2018-01-28 09:08 | US ---
HISTORY: Leg pain and swelling. Evaluate for DVT PHYSICIAN(S): Flo Nair MD. TECHNIQUE: Duplex sonography and color-flow Doppler with graded compression were used to evaluate the deep venous systems of both lower extremities. FINDINGS: There is isolated tibial thrombus in the left posterior tibial veins, age indeterminate. The left popliteal vein, femoral vein, and common femoral vein are patent and compressible. There is no sonographic evidence for deep venous thrombosis the visualized segments of the right lower extremity. IMPRESSION: Isolated left tibial DVT, age indeterminate. A followup ultrasound in 7-10 days is recommended.
[2018-01-28] MEDS: POLYETHYLENE GLYCOL 3350 17 GM/Dose PACKET PO SCH (10:27)
--- NOTE | 2018-01-28 12:38 | CP.PCM.PN ---
Subjective - Date & Time of Evaluation Date of Evaluation: 01/28/18 Time of Evaluation: 15:06 - Subjective Subjective: Patient seen and examined at bedside, no acute events overnight. Patient states left leg swelling has improved from baseline, offered no new complaints at this time. Denies chest pain, shortness of breath, fevers, or chills. Objective - Vital Signs/Intake and Output Vital Signs (last 24 hours): Temp Pulse Resp BP Pulse Ox 99 F 82 20 111/51 L 99 01/28/18 07:21 01/28/18 07:21 01/28/18 07:21 01/28/18 07:21 01/28/18 07:21 Intake and Output: 01/28/18 01/28/18 06:59 18:59 Intake Total 660 Balance 660 - Medications Medications: Current Medications Docusate Sodium (Colace) 100 mg PO BID [facility] Last Admin: 01/28/18 10:27 Dose: 100 mg Enoxaparin Sodium (Lovenox) 90 mg SC Q12H RAE PRN Reason: Protocol Last Admin: 01/28/18 05:42 Dose: 90 mg Hydromorphone HCl (Dilaudid) 0.5 mg IVP Q6H PRN PRN Reason: Pain, severe (8-10) Last Admin: 01/28/18 00:00 Dose: 0.5 mg Oxycodone HCl (Oxycodone Immediate Release Tab) 10 mg PO Q6H PRN PRN Reason: Pain, moderate (4-7) Last Admin: 01/28/18 05:49 Dose: 10 mg Pantoprazole Sodium (Protonix Ec Tab) 40 mg PO 0600 [facility] Last Admin: 01/28/18 05:43 Dose: 40 mg Polyethylene Glycol (Miralax) 17 gm PO DAILY [facility] Last Admin: 01/28/18 10:27 Dose: 17 gm Pregabalin (Lyrica) 50 mg PO BID [facility] Last Admin: 01/28/18 10:27 Dose: 50 mg - Labs Labs: 01/28/18 06:30 01/28/18 06:30 PT 12.9 SECONDS (9.4-12.5) H 01/27/18 01:53 INR 1.13 (0.93-1.08) H 01/27/18 01:53 APTT 26.9 Seconds (25.1-36.5) 01/27/18 01:53 - Constitutional Appears: Well - Head Exam Head Exam: ATRAUMATIC, NORMOCEPHALIC - Eye Exam Eye Exam: EOMI, Normal appearance - ENT Exam ENT Exam: Mucous Membranes Moist - Respiratory Exam Respiratory Exam: Clear to Ausculation Bilateral, NORMAL BREATHING PATTERN - Cardiovascular Exam Cardiovascular Exam: REGULAR RHYTHM, +S1, +S2 - GI/Abdominal Exam GI & Abdominal Exam: Soft, Normal Bowel Sounds. absent: Tenderness - Extremities Exam Extremities Exam: Tenderness (left knee). absent: Normal Inspection (Left lower extremity Warm to touch, left knee swelling noted) - Neurological Exam Neurological Exam: Abnormal Gait, Alert, Awake - Psychiatric Exam Psychiatric exam: Normal Affect, Normal Mood - Skin Skin Exam: Dry, Normal Color, Warm Assessment and Plan - Assessment and Plan (Free Text) Assessment: Patient is a 57 year old female with no significant past medical history presents to the ED for left lower extremity swelling and discomfort. Patient was found to have a deep vein thrombosis of the left lower extremity subsequently put on anticoagulation medication. Left Lower Extremity DVT -Dopplers: positive DVT at posterior tibial vein of left leg -Lovenox 80mg SC Q12H -Dr Cardona on consult help appreciated -Call placed for Dr. Cardona's service awaiting for the recommendations. S/P Left Knee Arthroplasty -Pain control: Dilaudid 0.5mg Q6H prn, Oxycodone 10mg Q6H prn -Continue routine post-op care Constipation -Likely due to narcotic use -Continue colace 100mg PO BID -Continue Miralax 17gm PO daily -Monitor for return of bowel function History of Vitamin D Deficiency -Vitamin D level was noted to be low -Supplementation as required GI/DVT ppx: -Protonix 40mg PO daily -Lovenox 90mg SC Q12H Patient seen with and planned approved by attending physician Dr. Cabrales
--- NOTE | 2018-01-28 17:10 | CP.PCM.PN ---
Subjective - Date & Time of Evaluation Date of Evaluation: 01/28/18 Time of Evaluation: 16:00 - Subjective Subjective: Patient seen and examined at bedside. Patient alert and awake. Denies any significant pain. Patient was admitted for a left isolated left tibial DVT. Patient currently on lovenox. Patient denies any CP/SOB. VSS wbc 10.1 hgb 8.7 L knee: incision clean, dry and intact. No erythema or drainage. Moderate effusion. Calf tender and warm to palpation. Thigh soft. NVI distally Patient going to be switched to Eliquis 2.5mg BID, spoke with Mani Cardona agrees with those recommendations Cont PT Apply ice for knee effusion Will see patient next week in Dr. Cardona's office for follow up visit. Objective - Vital Signs/Intake and Output Vital Signs (last 24 hours): Temp Pulse Resp BP Pulse Ox 100.9 F H 85 18 116/60 100 01/28/18 14:00 01/28/18 14:00 01/28/18 14:00 01/28/18 14:00 01/28/18 14:00 Intake and Output: 01/28/18 01/28/18 06:59 18:59 Intake Total 660 600 Balance 660 600 - Medications Medications: Current Medications Docusate Sodium (Colace) 100 mg PO BID [facility] Last Admin: 01/28/18 10:27 Dose: 100 mg Enoxaparin Sodium (Lovenox) 90 mg SC Q12H [facility] PRN Reason: Protocol Last Admin: 01/28/18 05:42 Dose: 90 mg Hydromorphone HCl (Dilaudid) 0.5 mg IVP Q6H PRN PRN Reason: Pain, severe (8-10) Last Admin: 01/28/18 00:00 Dose: 0.5 mg Oxycodone HCl (Oxycodone Immediate Release Tab) 10 mg PO Q6H PRN PRN Reason: Pain, moderate (4-7) Last Admin: 01/28/18 05:49 Dose: 10 mg Pantoprazole Sodium (Protonix Ec Tab) 40 mg PO 0600 [facility] Last Admin: 01/28/18 05:43 Dose: 40 mg Polyethylene Glycol (Miralax) 17 gm PO DAILY [facility] Last Admin: 01/28/18 10:27 Dose: 17 gm Pregabalin (Lyrica) 50 mg PO BID RAE Last Admin: 01/28/18 10:27 Dose: 50 mg - Labs Labs: 01/28/18 06:30 01/28/18 06:30 PT 12.9 SECONDS (9.4-12.5) H 01/27/18 01:53 INR 1.13 (0.93-1.08) H 01/27/18 01:53 APTT 26.9 Seconds (25.1-36.5) 01/27/18 01:53
[2018-01-29] MEDS: Pantoprazole 40 mg EC Tab PO SCH (06:38)
[2018-01-29 07:10] LABS: BASO # 0.02 K/mm3 (0.0-2.0); BASO % 0.2 % (0.0-3.0); EOS # 0.3 (0.0-0.7); EOS % 2.6 % (1.5-5.0); GRAN # 4.71 (1.4-6.5); GRAN % 49.1 % (50.0-68.0); HEMOGLOBIN 9.5 g/dL (12.0-16.0); LYMPH # 3.9 (1.2-3.4); LYMPH % 40.2 % (22.0-35.0); MEAN CELL VOLUME 86.2 fl (80.0-105.0); MEAN CORPUSCULAR HEMOGLOBIN 27.9 pg (25.0-35.0); MEAN CORPUSCULAR HGB CONC 32.3 g/dl (31.0-37.0); MEAN PLATELET VOLUME 9.4 fl (7.0-11.0); MONO # 0.8 (0.1-0.6); MONO % 7.9 % (1.0-6.0); RBC 3.41 10^6/uL (3.5-6.1); RED CELL DISTRIBUTION WIDTH 13.9 % (11.5-14.5); WHITE BLOOD COUNT 9.6 10^3/ul (4.5-11.0)
[2018-01-29 07:41] LABS: ALB/GLOB RATIO 1.1 (1.1-1.8); ALBUMIN 3.8 g/dL (3.0-4.8); ALT/SGPT 55 U/L (7-56); AST/SGOT 54 U/L (14-36); BLOOD UREA NITROGEN 14 mg/dL (7-21); CALCIUM 9.3 mg/dL (8.4-10.5); GFR AFRICAN-AMERICAN > 60; GFR NON-AFRICAN AMERICAN > 60
[2018-01-29] MEDS ORDERED: Ergocalciferol 50,000 Intl Units Cap PO SCH (07:45)
[2018-01-29 08:01] VITALS: RESP 20
[2018-01-29] MEDS: POLYETHYLENE GLYCOL 3350 17 GM/Dose PACKET PO SCH (09:34)
[2018-01-29 09:44] LABS: IRON 25 ug/dL (45-180)
[2018-01-29 09:55] LABS: % IRON SATURATION 10 % (20-55); TOTAL IRON BINDING CAPACITY 257 ug/dL (265-497)
--- NOTE | 2018-01-29 11:59 | RAD ---
HISTORY: COMPARISON: 01/27/2018. TECHNIQUE: Chest PA and lateral FINDINGS: LINES AND TUBES: None. LUNG AND PLEURA: The lungs are well inflated and clear. No pleural effusion or pneumothorax. HEART AND MEDIASTINUM: The heart is not enlarged. The hilar and mediastinal contours are within normal limits. SKELETAL STRUCTURES: The bony structures are within normal limits for the patient's age. VISUALIZED UPPER ABDOMEN: Normal. OTHER FINDINGS: None. IMPRESSION: No active pulmonary disease.
--- NOTE | 2018-01-29 12:41 | CP.PCM.PN ---
Subjective - Date & Time of Evaluation Date of Evaluation: 01/29/18 Time of Evaluation: 09:00 - Subjective Subjective: Patient 1 week s/p L TKA with left tibial DVT. Patient laying in bed, alert and awake. Denies any chest pain, shortness of breath. Patient started on Eliquis. max temp 101.2, afebrile now WBC 9.6 hgb 9.5 L knee: dressing removed. Incision clean and dry and intact. No erythema or drainage. Incision cleaned with NSS and new dressings applied. Thigh and calf are soft and non-tender today. NVI distally s/p L TKA Cont Eliquis 2.5mg BID Cont PT Cont incentive spirometer Discussed home physical therapy with patient once she is discharged prior to beginning outpatient therapy, she agrees. Will see patient in Dr. Cardona office next week He agrees with above Objective - Vital Signs/Intake and Output Vital Signs (last 24 hours): Temp Pulse Resp BP Pulse Ox 98.4 F 68 20 106/54 L 97 01/29/18 06:00 01/29/18 06:00 01/29/18 06:00 01/29/18 06:00 01/29/18 06:00 - Medications Medications: Current Medications Apixaban (Eliquis) 2.5 mg PO BID [facility] PRN Reason: Protocol Docusate Sodium (Colace) 100 mg PO BID [facility] Last Admin: 01/28/18 18:18 Dose: 100 mg Ergocalciferol (Drisdol 50,000 Intl Units Cap) 1 cap PO Q7D [facility] Hydromorphone HCl (Dilaudid) 0.5 mg IVP Q6H PRN PRN Reason: Pain, severe (8-10) Last Admin: 01/28/18 00:00 Dose: 0.5 mg Ibuprofen (Motrin Tab) 400 mg PO Q6H PRN PRN Reason: Fever >100.4 F Last Admin: 01/28/18 22:10 Dose: 400 mg Oxycodone HCl (Oxycodone Immediate Release Tab) 10 mg PO Q6H PRN PRN Reason: Pain, moderate (4-7) Last Admin: 01/28/18 20:27 Dose: 10 mg Pantoprazole Sodium (Protonix Ec Tab) 40 mg PO 0600 [facility] Last Admin: 01/29/18 06:38 Dose: 40 mg Polyethylene Glycol (Miralax) 17 gm PO DAILY [facility] Last Admin: 01/28/18 10:27 Dose: 17 gm Pregabalin (Lyrica) 50 mg PO BID [facility] Last Admin: 01/28/18 18:18 Dose: 50 mg - Labs Labs: 01/29/18 06:30 01/29/18 06:30 PT 12.9 SECONDS (9.4-12.5) H 01/27/18 01:53 INR 1.13 (0.93-1.08) H 01/27/18 01:53 APTT 26.9 Seconds (25.1-36.5) 01/27/18 01:53
[2018-01-29] MEDS ORDERED: Iron Complex Polysacch 150mg Cap PO SCH (13:45)
--- NOTE | 2018-01-29 14:40 | CP.PCM.DIS ---
<Mani Ortiz - Last Filed: 01/29/18 21:57> Provider - Provider Date of Admission: 01/27/18 04:17 Attending physician: Malcolm Avina MD Primary care physician: Kendell Sellers MD Time Spent in preparation of Discharge (in minutes): 45 Diagnosis - Discharge Diagnosis (1) Left leg DVT Status: Acute (2) History of arthroplasty of left knee Status: Acute (3) Anemia Status: Acute (4) Constipation Status: Acute (5) Osteoarthritis of left knee Status: Chronic (6) CAD (coronary artery disease) Status: Chronic Hospital Course - Lab Results Lab Results: Micro Results 01/27/18 07:30 Blood Blood Culture - Preliminary NO GROWTH AFTER 48 HOURS 01/27/18 07:00 Blood Blood Culture - Preliminary NO GROWTH AFTER 48 HOURS 01/27/18 10:00 Urine Urine Culture - Final No Growth (<1,000 CFU/ML) Most Recent Lab Values WBC 9.6 10^3/ul (4.5-11.0) 01/29/18 06:30 RBC 3.41 10^6/uL (3.5-6.1) L 01/29/18 06:30 Hgb 9.5 g/dL (12.0-16.0) L 01/29/18 06:30 Hct 29.4 % (36.0-48.0) L 01/29/18 06:30 MCV 86.2 fl (80.0-105.0) 01/29/18 06:30 MCH 27.9 pg (25.0-35.0) 01/29/18 06:30 MCHC 32.3 g/dl (31.0-37.0) 01/29/18 06:30 RDW 13.9 % (11.5-14.5) 01/29/18 06:30 Plt Count 479 10^3/uL (120.0-450.0) H 01/29/18 06:30 MPV 9.4 fl (7.0-11.0) 01/29/18 06:30 Gran % 49.1 % (50.0-68.0) L 01/29/18 06:30 Lymph % (Auto) 40.2 % (22.0-35.0) H 01/29/18 06:30 Sequoyah % (Auto) 7.9 % (1.0-6.0) H 01/29/18 06:30 Eos % (Auto) 2.6 % (1.5-5.0) 01/29/18 06:30 Baso % (Auto) 0.2 % (0.0-3.0) 01/29/18 06:30 Gran # 4.71 (1.4-6.5) 01/29/18 06:30 Lymph # (Auto) 3.9 (1.2-3.4) H 01/29/18 06:30 Sequoyah # (Auto) 0.8 (0.1-0.6) H 01/29/18 06:30 Eos # (Auto) 0.3 (0.0-0.7) 01/29/18 06:30 Baso # (Auto) 0.02 K/mm3 (0.0-2.0) 01/29/18 06:30 PT 12.9 SECONDS (9.4-12.5) H 01/27/18 01:53 INR 1.13 (0.93-1.08) H 01/27/18 01:53 APTT 26.9 Seconds (25.1-36.5) 01/27/18 01:53 Sodium 141 mmol/L (132-148) 01/29/18 06:30 Potassium 4.2 mmol/L (3.6-5.0) 01/29/18 06:30 Chloride 99 mmol/L (98-107) 01/29/18 06:30 Carbon Dioxide 30 mmol/L (21-33) 01/29/18 06:30 Anion Gap 16 (10-20) 01/29/18 06:30 BUN 14 mg/dL (7-21) 01/29/18 06:30 Creatinine 0.6 mg/dl (0.7-1.2) L 01/29/18 06:30 Est GFR ( Amer) > 60 01/29/18 06:30 Est GFR (Non-Af Amer) > 60 01/29/18 06:30 Random Glucose 105 mg/dL (70-110) 01/29/18 06:30 Calcium 9.3 mg/dL (8.4-10.5) 01/29/18 06:30 Iron 25 ug/dL (45-180) L 01/29/18 09:00 TIBC 257 ug/dL (265-497) L 01/29/18 09:00 % Saturation 10 % (20-55) L 01/29/18 09:00 Total Bilirubin 0.5 mg/dL (0.2-1.3) 01/29/18 06:30 AST 54 U/L (14-36) H 01/29/18 06:30 ALT 55 U/L (7-56) 01/29/18 06:30 Alkaline Phosphatase 119 U/L (38-126) 01/29/18 06:30 Total Protein 7.1 g/dL (5.8-8.3) 01/29/18 06:30 Albumin 3.8 g/dL (3.0-4.8) 01/29/18 06:30 Globulin 3.3 gm/dL 01/29/18 06:30 Albumin/Globulin Ratio 1.1 (1.1-1.8) 01/29/18 06:30 25-OH Vitamin D Total 13.0 NG/ML (30.0-100.0) L 01/27/18 05:00 Procalcitonin 0.20 NG/ML (0.19-0.49) 01/27/18 07:30 Urine Color Yellow (YELLOW) 01/27/18 10:00 Urine Appearance Clear (CLEAR) 01/27/18 10:00 Urine pH 6.0 (4.7-8.0) 01/27/18 10:00 Ur Specific Leland 1.025 (1.005-1.035) 01/27/18 10:00 Urine Protein 30 mg/dL (<30 mg/dL) H 01/27/18 10:00 Urine Glucose (UA) Negative mg/dL (NEGATIVE) 01/27/18 10:00 Urine Ketones Negative mg/dL (NEGATIVE) 01/27/18 10:00 Urine Blood Small (NEGATIVE) H 01/27/18 10:00 Urine Nitrate Negative (NEGATIVE) 01/27/18 10:00 Urine Bilirubin Negative (NEGATIVE) 01/27/18 10:00 Urine Urobilinogen 0.2 E.U./dL (<1 E.U./dL) 01/27/18 10:00 Ur Leukocyte Esterase Negative Giorgio/uL (NEGATIVE) 01/27/18 10:00 Urine RBC 5 - 10 /hpf (0-2) 01/27/18 10:00 Urine WBC 0 - 2 /hpf (0-6) 01/27/18 10:00 Ur Epithelial Cells 4 - 5 /hpf (0-5) 01/27/18 10:00 Urine Bacteria Many (NEG) 01/27/18 10:00 - Hospital Course Hospital Course: Miss Elizabeth is a 57 year old female with past medical history of non- obstructive coronary artery disease, osteoarthritis, and diabetes who was evaluated and treated for deep vein thrombosis of the left lower leg. With the use of physical examination, labwork, and imaging the patient was diagnosed and treated along with her chronic medical conditions. During her hospital stay, the patient was seen by orthopedics (Dr. Cardona) and physical therapy. Whose recommendations were appreciated in the management of this patient. The patient was started on lovenox which was later then changed to Eliquis. Physical therapy worked with the patient to increase mobility and avoid extended amounts of time in bed. During the course of her stay, the patient underwent chest X-ray , venous doppler of the lower extremities bilaterally, and EKG which were utilized in the management of her care. Venous doppler were positive for an isolated left deep vein thrombosis of the tibial vein. EKG showed normal sinus rhythm. Chest X-ray showed no evidence of active disease. On the night of 2017 patient spiked a fever of 101.2. Her nurse gave her tylenol which brought her fever down. Due to her fever, the day medical team ordered blood cultures, urine cultures, urine analysis, and chest xrays. The result for the chest xray showed no acute findings. The blood and urine cultures as well as the urine analysis results are still pending. Patient is now medically stable for discharge to the TCU. Discharge Exam - Head Exam Head Exam: ATRAUMATIC, NORMOCEPHALIC Discharge Plan - Follow Up Plan Condition: STABLE Disposition: TRANSF TO SNF Instructions: Deep Vein Thrombosis (Blood Clots in the Legs), Preventing Falls in the Older Adult, Wound Care, Apixaban, Why Vaccines Are Important for Everyone Additional Instructions: Discharge to TCU Referrals: Kendell Sellers MD [Primary Care Provider] - Follow up with primary <Tarah Villafana - Last Filed: 01/30/18 13:39> Provider - Provider Date of Admission: 01/27/18 04:17 Attending physician: Malcolm Avina MD Primary care physician: Kendell Sellers MD Hospital Course - Lab Results Lab Results: Micro Results 01/29/18 10:30 Blood-Venous Blood Culture - Preliminary NO GROWTH AFTER 24 HOURS 01/29/18 10:00 Blood-Venous Blood Culture - Preliminary NO GROWTH AFTER 24 HOURS 01/29/18 11:10 Urine Urine Culture - Final No Growth (<1,000 CFU/ML) 01/27/18 07:30 Blood Blood Culture - Preliminary NO GROWTH AFTER 3 DAYS 01/27/18 07:00 Blood Blood Culture - Preliminary NO GROWTH AFTER 3 DAYS 01/27/18 10:00 Urine Urine Culture - Final No Growth (<1,000 CFU/ML) Most Recent Lab Values WBC 9.6 10^3/ul (4.5-11.0) 01/29/18 06:30 RBC 3.41 10^6/uL (3.5-6.1) L 01/29/18 06:30 Hgb 9.5 g/dL (12.0-16.0) L 01/29/18 06:30 Hct 29.4 % (36.0-48.0) L 01/29/18 06:30 MCV 86.2 fl (80.0-105.0) 01/29/18 06:30 MCH 27.9 pg (25.0-35.0) 01/29/18 06:30 MCHC 32.3 g/dl (31.0-37.0) 01/29/18 06:30 RDW 13.9 % (11.5-14.5) 01/29/18 06:30 Plt Count 479 10^3/uL (120.0-450.0) H 01/29/18 06:30 MPV 9.4 fl (7.0-11.0) 01/29/18 06:30 Gran % 49.1 % (50.0-68.0) L 01/29/18 06:30 Lymph % (Auto) 40.2 % (22.0-35.0) H 01/29/18 06:30 Sequoyah % (Auto) 7.9 % (1.0-6.0) H 01/29/18 06:30 Eos % (Auto) 2.6 % (1.5-5.0) 01/29/18 06:30 Baso % (Auto) 0.2 % (0.0-3.0) 01/29/18 06:30 Gran # 4.71 (1.4-6.5) 01/29/18 06:30 Lymph # (Auto) 3.9 (1.2-3.4) H 01/29/18 06:30 Sequoyah # (Auto) 0.8 (0.1-0.6) H 01/29/18 06:30 Eos # (Auto) 0.3 (0.0-0.7) 01/29/18 06:30 Baso # (Auto) 0.02 K/mm3 (0.0-2.0) 01/29/18 06:30 PT 12.9 SECONDS (9.4-12.5) H 01/27/18 01:53 INR 1.13 (0.93-1.08) H 01/27/18 01:53 APTT 26.9 Seconds (25.1-36.5) 01/27/18 01:53 Sodium 141 mmol/L (132-148) 01/29/18 06:30 Potassium 4.2 mmol/L (3.6-5.0) 01/29/18 06:30 Chloride 99 mmol/L (98-107) 01/29/18 06:30 Carbon Dioxide 30 mmol/L (21-33) 01/29/18 06:30 Anion Gap 16 (10-20) 01/29/18 06:30 BUN 14 mg/dL (7-21) 01/29/18 06:30 Creatinine 0.6 mg/dl (0.7-1.2) L 01/29/18 06:30 Est GFR ( Amer) > 60 01/29/18 06:30 Est GFR (Non-Af Amer) > 60 01/29/18 06:30 Random Glucose 105 mg/dL (70-110) 01/29/18 06:30 Calcium 9.3 mg/dL (8.4-10.5) 01/29/18 06:30 Iron 25 ug/dL (45-180) L 01/29/18 09:00 TIBC 257 ug/dL (265-497) L 01/29/18 09:00 % Saturation 10 % (20-55) L 01/29/18 09:00 Ferritin 179.0 ng/mL 01/29/18 09:00 Total Bilirubin 0.5 mg/dL (0.2-1.3) 01/29/18 06:30 AST 54 U/L (14-36) H 01/29/18 06:30 ALT 55 U/L (7-56) 01/29/18 06:30 Alkaline Phosphatase 119 U/L (38-126) 01/29/18 06:30 Total Protein 7.1 g/dL (5.8-8.3) 01/29/18 06:30 Albumin 3.8 g/dL (3.0-4.8) 01/29/18 06:30 Globulin 3.3 gm/dL 01/29/18 06:30 Albumin/Globulin Ratio 1.1 (1.1-1.8) 01/29/18 06:30 Vitamin B12 556 pg/mL (239-931) 01/29/18 09:00 25-OH Vitamin D Total 13.0 NG/ML (30.0-100.0) L 01/27/18 05:00 Folate > 20.0 ng/mL 01/29/18 09:00 Procalcitonin 0.20 NG/ML (0.19-0.49) 01/27/18 07:30 Urine Color Yellow (YELLOW) 01/27/18 10:00 Urine Appearance Clear (CLEAR) 01/27/18 10:00 Urine pH 6.0 (4.7-8.0) 01/27/18 10:00 Ur Specific Leland 1.025 (1.005-1.035) 01/27/18 10:00 Urine Protein 30 mg/dL (<30 mg/dL) H 01/27/18 10:00 Urine Glucose (UA) Negative mg/dL (NEGATIVE) 01/27/18 10:00 Urine Ketones Negative mg/dL (NEGATIVE) 01/27/18 10:00 Urine Blood Small (NEGATIVE) H 01/27/18 10:00 Urine Nitrate Negative (NEGATIVE) 01/27/18 10:00 Urine Bilirubin Negative (NEGATIVE) 01/27/18 10:00 Urine Urobilinogen 0.2 E.U./dL (<1 E.U./dL) 01/27/18 10:00 Ur Leukocyte Esterase Negative Giorgio/uL (NEGATIVE) 01/27/18 10:00 Urine RBC 5 - 10 /hpf (0-2) 01/27/18 10:00 Urine WBC 0 - 2 /hpf (0-6) 01/27/18 10:00 Ur Epithelial Cells 4 - 5 /hpf (0-5) 01/27/18 10:00 Urine Bacteria Many (NEG) 01/27/18 10:00 Attending/Attestation - Attestation I have personally seen and examined this patient.: Yes I have fully participated in the care of the patient.: Yes I have reviewed all pertinent clinical information, including history, physical exam and plan: Yes Notes (Text): Patient seen and examined by me at 11:15 AM 01/29/18 with resident at bedside. Case and discharge discussed with resident. Agree with above with following additions/changes. Patient states that she is feeling much better today. Pain is controlled. Patient has been able to ambulate. No chest pain or shortness of breath. No abdominal pain. Patient was febrile overnight. No headaches or dizziness. No nausea or vomiting. No dysuria. Patient is having regular bowel movements. Physical exam: Gen: Patient is awake and alert sitting up in bed in no acute distress HEENT: Normocephalic atraumatic, extraocular muscles intact, pupils equal reactive, oropharynx is pink and moist, no pharyngeal erythema or exudate appreciated, neck is supple. Cardiovascular: Normal rhythm, normal S1-S2, no murmurs rubs or gallops appreciated Pulmonary: Normal respiratory effort. No rhonchi, rales, or wheezing appreciated Gastrointestinal: Soft, nontender, nondistended, positive bowel sounds all 4 quadrants, no guarding Musculoskeletal: Moves all extremities. Positive left calf tenderness. Thomas and incision site left knee clean dry and intact, no signs of infection. Central nervous system: AAO 3 Dermatologic: Skin warm and dry Assessment and plan: Patient is a 57-year-old female who presented with left lower extremity pain status post left knee arthroplasty. Patient was found to have DVT of the posterior tibial vein. Patient was initially placed on therapeutic Lovenox. Patient was then started on Eliquis. Patient had episodes of fever. Chest x-ray and blood cultures ordered. No signs of infection. Fever may be secondary to DVT. Patient was seen by orthopedics. Patient cleared to return back to TCU. Chest x-ray did not show any active pulmonary disease. Blood cultures will be followed up at TCU. Fever resolved. Constipation resolved. Patient doing well upon discharge and eager to return to therapy. Patient will need to follow-up with her primary care doctor within 3-5 days upon discharge from physical therapy. Patient will also need to continue follow- up with orthopedics. All instructions discussed with patient in detail. Patient with understands and agrees to all instructions. Patient transferred to TCU. Time spent on discharge: 35 minutes
[2018-01-29 15:56] VITALS: BP 117/61; PULSE 79; TEMP 99.4; O2SAT 100
[2018-01-29 16:44] LABS: FOLATE > 20.0 ng/mL
== END 2018-01-29 17:56 | DRG 300 ==
LOC: ED 00:28 → ERH 04:17 → 5RSO 05:43
PROVIDERS: ADMIT Internal Medicine; ATTEND Internal Medicine
PROC: 3E013GC Introduction of Other Therapeutic Substance into Subcutaneous Tissue, Percutaneous Approach (ICD-10-PCS; principal; 2018-01-27)
DX: T81.72XA Complication of vein following a procedure, not elsewhere classified, initial encounter (principal); I82.442 Acute embolism and thrombosis of left tibial vein; I25.10 Atherosclerotic heart disease of native coronary artery without angina pectoris; D64.9 Anemia, unspecified; K59.00 Constipation, unspecified; E11.9 Type 2 diabetes mellitus without complications; E55.9 Vitamin D deficiency, unspecified; I10 Essential (primary) hypertension; K21.9 Gastro-esophageal reflux disease without esophagitis; E87.6 Hypokalemia; Y83.8 Other surgical procedures as the cause of abnormal reaction of the patient, or of later complication, without mention of misadventure at the time of the procedure; Z90.710 Acquired absence of both cervix and uterus

== ENCOUNTER 2018-01-29 17:29 | Inpatient (IN) | payer BC ==
[2018-01-29] MEDS ORDERED: HYDROmorphone 0.5 mg/0.5 ml ISec IVP PRN (18:21)
[2018-01-29 18:31] VITALS: RESP 18; BMI 31.9
[2018-01-29] MEDS: oxyCODONE 10 mg Immediate Release Tab PO PRN (21:40)
[2018-01-30] MEDS: oxyCODONE 10 mg Immediate Release Tab PO PRN ×2 (04:15→10:26)
[2018-01-30] MEDS ORDERED: Pantoprazole 40 mg EC Tab PO SCH (06:00)
--- NOTE | 2018-01-30 06:17 | CP.PCM.HP ---
<Mani Ortiz - Last Filed: 01/30/18 23:34> History of Present Illness - History of Present Illness History of Present Illness: Ms. Elizabeth is a 57 year old female with past medical history of non- obstructive CAD and osteoarthritis who was admitted to the hospital for evaluation and treatment of left leg pain. With the use of physical examinations, lab work, and imaging the patient was diagnosed and treated for a DVT of the left lower extremity. Patient was deemed medically cleared for transfer to TCU. Patient seen and examined at bedside. States left leg pain has improved compared to baseline. Offers no new complaints at this time. Denies fever, chills, chest pain, SOB, abdominal pain, nausea, vomiting, diarrhea, constipation, and urinary symptoms. Medical History: Non-obstructive CAD, osteoarthritis Surgical History: Right Knee replacement, Hysterectomy, Fibroid removal Social History: Denies alcohol, tobacco, drug use Family History: Patient states her mom and sister have history of DVT/PE Allergies: Mushroom Medications: Denies Present on Admission - Present on Admission Any Indicators Present on Admission: Yes History of DVT/PE: Yes History of Uncontrolled Diabetes: No Urinary Catheter: No Decubitus Ulcer Present: No Past Patient History - Infectious Disease Hx of Infectious Diseases: None - Tetanus Immunizations Tetanus Immunization: Unknown - Past Medical History & Family History Past Medical History?: Yes - Past Social History Smoking Status: Never Smoked - CARDIAC Hx Hypertension: Yes - PULMONARY Hx Respiratory Disorders: Yes Hx Asthma: Yes (Seasonal) Hx Sleep Apnea: Yes - NEUROLOGICAL Hx Dizziness: Yes - HEENT Hx HEENT Problems: No - RENAL Hx Chronic Kidney Disease: No - ENDOCRINE/METABOLIC Hx Endocrine Disorders: No - HEMATOLOGICAL/ONCOLOGICAL Hx Blood Disorders: No - INTEGUMENTARY Hx Dermatological Problems: No - MUSCULOSKELETAL/RHEUMATOLOGICAL Hx Falls: No - GASTROINTESTINAL Hx Gastrointestinal Disorders: Yes (gerd) - GENITOURINARY/GYNECOLOGICAL Hx Reproductive Disorders: No - PSYCHIATRIC Hx Emotional Abuse: No Hx Physical Abuse: No Hx Substance Use: No - SURGICAL HISTORY Hx Cardiac Catheterization: Yes (11/29/17-WNL) Hx Section: Yes (x1) Hx Hysterectomy: Yes (1997) - ANESTHESIA Hx Anesthesia Reactions: No Hx Malignant Hyperthermia: No Meds Allergies/Adverse Reactions: Allergies Allergy/AdvReac Type Severity Reaction Status Date / Time mushroom Allergy Severe SWELLING Verified 01/24/18 19:59 Physical Exam - Constitutional Appears: Well, No Acute Distress - Head Exam Head Exam: ATRAUMATIC, NORMAL INSPECTION - Eye Exam Eye Exam: Normal appearance - ENT Exam ENT Exam: Mucous Membranes Moist - Respiratory Exam Respiratory Exam: Clear to Auscultation Bilateral, NORMAL BREATHING PATTERN - Cardiovascular Exam Cardiovascular Exam: REGULAR RHYTHM, +S1, +S2 - GI/Abdominal Exam GI & Abdominal Exam: Normal Bowel Sounds, Soft. absent: Tenderness - Extremities Exam Extremities exam: Positive for: calf tenderness Additional comments: Patient complains of Left knee pain and left calf tenderness. There is swelling on the left knee. - Neurological Exam Neurological exam: Abnormal Gait, Alert, Oriented x3 - Psychiatric Exam Psychiatric exam: Normal Affect, Normal Mood - Skin Skin Exam: Dry, Normal Color Results - Vital Signs Recent Vital Signs: Last Vital Signs Temp 100.1 F H 01/29/18 18:26 Pulse 82 01/29/18 18:26 Resp 18 01/29/18 18:26 BP 117/63 01/29/18 18:26 Pulse Ox Assessment & Plan - Assessment and Plan (Free Text) Assessment: Patient is a 57 year old female with no significant past medical history presents to the ED for left lower extremity swelling and discomfort. Patient was found to have a deep vein thrombosis of the left lower extremity and is being treated with anticoagulation medication. Left Lower Extremity DVT - Dopplers: positive DVT at posterior tibial vein of left leg - Continue Eliquis 10mg - Dr Cardona on consult help appreciated - Continue PT S/P Left Knee Arthroplasty - Pain control: Dilaudid 0.5mg Q6H prn, Oxycodone 10mg Q6H prn - Continue routine post-op care Constipation- resolved - Likely due to narcotic use - Continue colace 100mg PO BID - Continue Miralax 17gm PO daily History of Vitamin D Deficiency - Vitamin D level was noted to be low - Continue Vit D Supplementation Patient seen with and planned approved by attending physician Dr. Villafana - Date & Time Date: 01/30/18 Time: 09:38 <Tarah Villafana - Last Filed: 01/31/18 12:30> Results - Vital Signs Recent Vital Signs: Last Vital Signs Temp 98.9 F 01/30/18 16:00 Pulse 69 01/30/18 16:00 Resp 18 01/30/18 16:00 BP 111/51 L 01/30/18 16:00 Pulse Ox 96 01/30/18 16:00 Attending/Attestation - Attestation I have personally seen and examined this patient.: Yes I have fully participated in the care of the patient.: Yes I have reviewed all pertinent clinical information: Yes Notes (Text): Patient seen and examined by me at 11:05 AM 01/30/18 with resident at bedside. Case and discharge discussed with resident. Agree with above with following additions/changes. Patient is a 57-year-old female with past medical history significant for nonobstructive coronary artery disease and osteoarthritis that presented with left lower extremity pain status post left knee arthroplasty on 01/27/2018. She was found to have DVT of the posterior tibial vein. She was started on therapeutic Lovenox and then bridged to Eliquis. Patient was doing much better and now has been transferred back to TCU. Patient states that she is feeling okay. She has pain in her left knee and leg after physical therapy. Pain medications are helping. Patient is ambulating with physical therapy. No chest pain or shortness of breath. No abdominal pain. Patient is afebrile. No headaches or dizziness. No nausea or vomiting. No dysuria. Patient is having regular bowel movements. 14 point review of systems reviewed by me. Please see HPI. All other systems are negative Physical exam: Gen: Patient is awake and alert sitting up in bed in no acute distress HEENT: Normocephalic atraumatic, extraocular muscles intact, pupils equal reactive, oropharynx is pink and moist, no pharyngeal erythema or exudate appreciated, neck is supple. Cardiovascular: Normal rhythm, normal S1-S2, no murmurs rubs or gallops appreciated Pulmonary: Normal respiratory effort. No rhonchi, rales, or wheezing appreciated Gastrointestinal: Soft, nontender, nondistended, positive bowel sounds all 4 quadrants, no guarding Musculoskeletal: Moves all extremities. Positive left calf tenderness. Thomas in place. Incision site left knee clean dry and intact, no signs of infection. Central nervous system: AAO 3 Dermatologic: Skin warm and dry Assessment and plan: Patient is a 57-year-old female who presented with left lower extremity pain status post left knee arthroplasty. Patient was found to have DVT of the posterior tibial vein. 1. Left lower extremity DVT. Patient is on Eliquis. Pain in knee and calf is improving. Continue with physical therapy as tolerated. Continue with physical therapy as tolerated. Continue with pain management. 2. Status post left knee arthroplasty. Orthopedics following. Continue physical therapy as tolerated. Care as per orthopedic team. 3. Constipation. Resolved. Continue Colace. 4. Vitamin D deficiency. Continue vitamin D 50,000 units once a week 5. Anemia. Continue iron. Case discussed in detail with the patient regarding current diagnosis and treatment plan
[2018-01-30] MEDS: Iron Complex Polysacch 150mg Cap PO SCH (08:09)
[2018-01-30] MEDS ORDERED: POLYETHYLENE GLYCOL 3350 17 GM/Dose PACKET PO SCH (10:00)
[2018-01-30 16:59] VITALS: BP 111/51; PULSE 69; TEMP 98.9; O2SAT 96
--- NOTE | 2018-01-31 08:08 | CP.PCM.PN ---
Subjective - Date & Time of Evaluation Date of Evaluation: 01/31/18 Time of Evaluation: 08:06 - Subjective Subjective: Patient seen and examined. Patient alert and awake sitting up in bed. Patient would like to go home. No CP/SOB VSS L knee: dressings changed. Incision clean and intact. No erythema or drainage. Calf and thigh are soft and nontender. NVI distally Cont Eliquis 2.5mg BID Recommend patient is discharged today Home PT next week then will begin outpatient PT Will see patient in Dr. Cardona's office next for follow up visit. Objective - Vital Signs/Intake and Output Vital Signs (last 24 hours): Temp Pulse Resp BP Pulse Ox 98.9 F 69 18 111/51 L 96 01/30/18 16:00 01/30/18 16:00 01/30/18 16:00 01/30/18 16:00 01/30/18 16:00 - Medications Medications: Current Medications Apixaban (Eliquis) 10 mg PO BID [facility] PRN Reason: Protocol Stop: 02/02/18 00:00 Last Admin: 01/30/18 17:45 Dose: 10 mg Apixaban (Eliquis) 5 mg PO BID [facility] PRN Reason: Protocol Docusate Sodium (Colace) 100 mg PO DAILY [facility] PRN Reason: Protocol Last Admin: 01/30/18 10:19 Dose: 100 mg Ergocalciferol (Drisdol 50,000 Intl Units Cap) 1 cap PO Q7D [facility] PRN Reason: Protocol Ibuprofen (Motrin Tab) 400 mg PO Q8H PRN; Protocol PRN Reason: Fever >100.4 F Oxycodone HCl (Oxycodone Immediate Release Tab) 10 mg PO Q6H PRN; Protocol PRN Reason: Pain, moderate (4-7) Last Admin: 01/30/18 10:26 Dose: 10 mg Polysaccharide Iron Complex (Ferrex-150) 300 mg PO 0800 RAE PRN Reason: Protocol Last Admin: 01/30/18 08:09 Dose: 300 mg Pregabalin (Lyrica) 50 mg PO BID [facility] PRN Reason: Protocol Last Admin: 01/30/18 17:48 Dose: 50 mg
[2018-01-31] MEDS: Iron Complex Polysacch 150mg Cap PO SCH (08:23)
--- NOTE | 2018-01-31 17:39 | CP.PCM.DIS ---
<Mani Ortiz - Last Filed: 01/31/18 22:36> Provider - Provider Date of Admission: 01/29/18 17:29 Attending physician: Tarah Villafana DO Primary care physician: Kendell Sellers MD Time Spent in preparation of Discharge (in minutes): 45 Hospital Course - Hospital Course Hospital Course: Patient underwent left knee replacement surgery 01/22 where later she experienced lower extremity swelling and calf pain. Dr. Cardona ordered patient to go to the emergency room for possible deep vein thrombosis. Lower extremity dopplers were done which was positive for a DVT. Patient was then admitted to [facility]. In the course of her hospital stay, patient underwent lower extremity doppler, chest xray, and electrocardiogram. Lower extremity dopplers were positive for a DVT of the left posterior tibial vein, chest xray showed no pulmonary disease, and EKG showed normal sinus rhythm. Orthopedics (Dr. Cardona) and PT were consulted. Orthopedics recommended patient to be treated with lovenox and then switched to Eliquis. Patient was then transferred to TCU to work with PT. PT worked with patients to increase ambulation and reduce the risk of having another clot. Patient's pain was controlled with Oxycodone as needed. Patient is now medically stable for discharge. Patient was educated on the correct way to take her medications and is scheduled to see Dr. Cardona on . Patient further instructed to return to the emergency room for reoccurring symptoms or any other symptoms requiring any medical attention. - Date & Time of H&P Date of H&P: 01/31/18 Time of H&P: 17:33 Discharge Exam - Head Exam Head Exam: ATRAUMATIC, NORMAL INSPECTION - Eye Exam Eye Exam: Normal appearance - ENT Exam ENT Exam: Mucous Membranes Moist - Respiratory Exam Respiratory Exam: Clear to PA & Lateral, NORMAL BREATHING PATTERN, UNREMARKABLE - Cardiovascular Exam Cardiovascular Exam: REGULAR RHYTHM, +S1, +S2 - GI/Abdominal Exam GI & Abdominal Exam: Normal Bowel Sounds, Soft. absent: Tenderness - Extremities Exam Extremities exam: calf tenderness Additional comments: There is still swelling on the left knee, and tenderness on the anterior leg. Left knee covered with dressing. Dressing is clean, dry, and intact. - Neurological Exam Neurological exam: Alert, Oriented x3 - Psychiatric Exam Psychiatric exam: Normal Affect, Normal Mood - Skin Skin Exam: Dry, Normal Color, Warm Discharge Plan - Discharge Medications Prescriptions: Apixaban [Eliquis] 5 mg PO BID #60 tab Apixaban [Eliquis] 10 mg PO BID #5 tab Ergocalciferol [Drisdol 50,000 Intl Units Cap] 1 cap PO Q7D #4 cap Iron Polysaccharide [Ferrex-150] 300 mg PO DAILY #7 cap oxyCODONE [oxyCODONE Immediate Release Tab] 10 mg PO Q6H PRN #10 tab PRN Reason: Pain, Severe (8-10) - Follow Up Plan Condition: GOOD Disposition: HOME/ ROUTINE Instructions: Constipation, Adult (DC), Anemia Caused by Low Iron, Adult (DC), Deep Vein Thrombosis (Blood Clots in the Legs) (DC) Additional Instructions: Please see Dr Ruby in his office next 02/07/[address] Ruby will give you prescription for outpatient physical therapy. Please take the eliquis 10 mg once tonight when you get home, then 10 mg twice a day for the next 2 days. Then start taking eliquis 5 mg twice a day, starting on Sunday02/03/18 morning . We will be sending you home with 30 days worth of 5 mg eliquis, however it's your responsibility to follow up with your primary care doctor or Dr Ruby to get the refills for the next 3-6 months. Please follow up with your primary care doctor within 3-5 days. Please get any refills needed for medications from your primary care doctor. Please return to the emergency room if your symptoms worsens or returns or for any other symptoms requiring immediate medical attention. Referrals: Paulie Cardona MD [Staff Provider] - Kendell Sellers MD [Primary Care Provider] - <Tarah Villafana - Last Filed: 02/01/18 18:41> Provider - Provider Date of Admission: 01/29/18 17:29 Attending physician: Tarah Villafana DO Primary care physician: Kendell Sellers MD Attending/Attestation - Attestation I have personally seen and examined this patient.: Yes I have fully participated in the care of the patient.: Yes I have reviewed all pertinent clinical information, including history, physical exam and plan: Yes Notes (Text): Patient seen and examined by me at 12:45 PM 01/31/18 with resident at bedside. Case and discharge discussed with resident. Agree with above with following additions/changes. Patient is a 57-year-old female with past medical history significant for nonobstructive coronary artery disease and osteoarthritis that presented on 07/2017 with left lower extremity pain status post left knee arthroplasty. She was found to have DVT of the posterior tibial vein. She was started on therapeutic Lovenox and then bridged to Eliquis. Patient was doing well and was transferred to TCU for rehabilitation. Patient worked with physical therapy and was able to go up and down steps. She was able to ambulate with walker. She was discharged home with home physical therapy as per orthopedics. Patient did have episode of fevers. There were no signs of infection. All cultures were negative. Asked x-ray did not show any signs of infection. Fever likely secondary to DVT. Patient was also found to have vitamin D deficiency. She was started on oral supplementation. Patient was also continued on iron for iron deficiency anemia. Patient did have constipation which resolved. Patient was cleared for discharge by all consultants. Patient was discharged with Eliquis and oxycodone for pain as needed. All symptoms improved upon discharge. On day of discharge, patient is feeling well. Patient feels ready to go home. She states that she is having some pain at her left knee after physical therapy. However, the pain is controlled with pain medications. Patient states that she is able to go up and down stairs after working with physical therapy. She denies any nausea, vomiting, or abdominal pain. She has been afebrile. No chills. No headaches or dizziness. No diarrhea or constipation. No dysuria. Physical exam: Gen: Patient is awake and alert sitting up in bed in no acute distress HEENT: Normocephalic atraumatic, extraocular muscles intact, pupils equal reactive, oropharynx is pink and moist, no pharyngeal erythema or exudate appreciated, neck is supple. Cardiovascular: Normal rhythm, normal S1-S2, no murmurs rubs or gallops appreciated Pulmonary: Normal respiratory effort. No rhonchi, rales, or wheezing appreciated Gastrointestinal: Soft, nontender, nondistended, positive bowel sounds all 4 quadrants, no guarding Musculoskeletal: Moves all extremities. Improved left calf tenderness. Wilson in place. Incision site left knee clean dry and intact, no signs of infection. Central nervous system: AAO 3 Dermatologic: Skin warm and dry Please see chart for full details. Follow-up instructions: Patient to follow-up with orthopedics Dr. Ruby in his office on 02/07/2018. At time Dr. Norman will give patient a prescription for outpatient physical therapy. Patient to take Eliquis 10 mg twice a day for the next 2 days. Then patient to take Eliquis 5 mg twice a day as prescribed starting 02/03/2018. She is to get any refills needed on medications with her primary care doctor or orthopedics Dr. Ruby. Follow up with the primary care doctor within 3-5 days. All instructions were explained to patient in detail. Patient both understands and agrees to all instructions. Time spent on discharging patient including chart review, medication reconciliation, discussion with the patient resident consultants and nursing staff was approximately 45 minutes.
[2018-02-05] MEDS ORDERED: Ergocalciferol 50,000 Intl Units Cap PO SCH (10:00)
== END 2018-01-31 16:49 | disposition home or self-care (01) | DRG 301 ==
LOC: TRCU 17:29
PROVIDERS: ADMIT Internal Medicine; ATTEND Hospitalist
PROC: F07Z9FZ Gait Training/Functional Ambulation Treatment using Assistive, Adaptive, Supportive or Protective Equipment (ICD-10-PCS; principal; 2018-01-31)
PROC: F07Z8ZZ Transfer Training Treatment (ICD-10-PCS; 2018-01-31)
PROC: F07Z5ZZ Bed Mobility Treatment (ICD-10-PCS; 2018-01-31)
PROC: F08Z4ZZ Home Management Treatment (ICD-10-PCS; 2018-01-31)
DX: I82.442 Acute embolism and thrombosis of left tibial vein (principal); I10 Essential (primary) hypertension; I25.10 Atherosclerotic heart disease of native coronary artery without angina pectoris; D50.9 Iron deficiency anemia, unspecified; E55.9 Vitamin D deficiency, unspecified; G47.30 Sleep apnea, unspecified; J45.909 Unspecified asthma, uncomplicated; K21.9 Gastro-esophageal reflux disease without esophagitis; M19.90 Unspecified osteoarthritis, unspecified site; Z96.653 Presence of artificial knee joint, bilateral; K59.00 Constipation, unspecified; Z79.01 Long term (current) use of anticoagulants